=== PATIENT | male | born 1970 | race Caucasian/White ===

== ENCOUNTER → 2016-12-04 | Outpatient (CLI) | payer OTHER ==
[~2016-12-04] MED LIST: ACET-1311 PO; ALUM-30 PO; BENZ-89 PO; CEPH500C2 PO; LITH150C PO; LITH600C PO; METF500T PO; MOML PO; RSP1 PO; RSP3 PO
[2016-12-04 09:37] LABS: BASO % 0.5 %; BASO ABS # 0.05 K/uL (0-0.2); EOS % 3.6 %; HEMATOCRIT 38.3 % (42-52); IG% 0.3 %; LYMPH ABS # 2.13 K/uL (1.2-3.4); MEAN CELL VOLUME 65.5 fL (80-100); MEAN CORPUSCULAR HGB CONC 30.5 g/dl (32-36); MEAN PLATELET VOLUME 10.7 fL (7.4-10.4); MONO % 5.7 %; NEUT % 68.9 %; PLATELET COUNT 234 K/uL (130-400); RED BLOOD COUNT 5.85 M/uL (4.7-6.1); WHITE BLOOD COUNT 10.15 K/uL (4.8-10.8)
[2016-12-04 09:44] LABS: POTASSIUM 3.6 mmol/L (3.5-5.1)
[2016-12-04 09:52] LABS: LITHIUM 0.6 mMOL/L (0.6-1.2)
[2016-12-04 09:57] LABS: ANISOCYTOSIS PRESENT; COMPLETE YES; HYPERSEGMENTED POLYS 1+; HYPOCHROMIA PRESENT; MICROCYTOSIS PRESENT; TOXIC GRANULATION 1+; VACUOLIZATION 1+
== END | disposition home or self-care (01) ==
LOC: C.LAB 07:44
PROVIDERS: ATTEND Psychiatry & Neurology Psychiatry
DX: F25.9 Schizoaffective disorder, unspecified (principal)

== ENCOUNTER 2017-01-21 09:10 | Emergency (ER) | payer OTHER ==
[~2017-01-21] VITALS: Ht 195.6 cm; Wt 154.1 kg
[2017-01-21 09:10] VITALS: TEMP 36.8; Ht 195.6 cm; Wt 154.1 kg
[~2017-01-21 09:10] MED LIST changes: -CEPH500C2 PO
[2017-01-21] MEDS ORDERED: IBUPROFEN 600 MG TAB PO STA (09:51)
--- NOTE | 2017-01-21 09:52 | EMERGENCY ROOM VISIT NOTE ---
History Report prepared by Jarrod: Edgard Bro Under the Supervision of: Dr. Timmy Mayers M.D. 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 The patient notes that he has had back pain for two weeks and this morning he could not get out bed. He currently rates his pain a 5/10 in severity. He reports back pain in the past with similar symptoms. He notes that he had a pinched nerve in the past and he "fixed it by traction; I did it myself." He took 600mg Ibuprofen last night. He was recently hospitalized. He notes difficulty urinating, though this has been normal for him. He denies any fevers, chills, coughs, congestion, nausea, vomiting, or diarrhea. He notes blisters on his left foot. He has a history of neuropathy. He denies a history of diabetes. The patient has a history of bipolar disorder. 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 A total of ten systems were reviewed and were otherwise negative. Past Medical & Surgical Medical Problems: (1) Bipolar disorder (2) Depression (3) Diabetes mellitus (4) Feeling suicidal (5) Pinched nerve Family History Depression Social History Smoking Status: Never Smoker Alcohol Use: none Drug Use: none Marital Status: single, Housing Status: other (jail at [facility] [place]) Occupation Status: disabled Current/Historical Medications Scheduled Carbamazepine (Tegretol), 400 MG PO BID Hydrochlorothiazide (Hydrochlorothiazide), 12.5 MG PO DAILY [place] Carbonate Ext Rel (Lithobid Ext Rel), 300 MG PO DAILY@1600 [place] Carbonate Ext Rel (Lithobid Ext Rel), 450 MG PO BID Lorazepam (Ativan), 0.5 MG PO BID Prednisone (Prednisone), 3 TAB PO DAILY Risperidone (Risperdal), 3 MG PO BID Scheduled PRN Lidocaine (Lidoderm Patch 5%), 1 PATCH TD DAILY PRN for Pain Allergies Coded Allergies: No Known Allergies (Verified , `, 11/28/12) Physical Exam Vital Signs Date Time Temp Pulse Resp B/P (MAP) Pulse Ox O2 Delivery O2 Flow Rate FiO2 01/21/17 13:12 68 16 145/72 98 Room Air 01/21/17 11:13 72 16 171/90 98 Room Air 01/21/17 09:35 75 16 161/86 94 Room Air 01/21/17 09:10 36.8 75 16 161/86 94 Room Air Physical Exam GENERAL: Awake, alert, well-appearing, in no distress HENT: Normocephalic, atraumatic. Oropharynx show dry mucus membranes. EYES: Normal conjunctiva. Sclera non-icteric. NECK: Supple. No nuchal rigidity. FROM. No JVD. RESPIRATORY: Clear to auscultation. CARDIAC: Regular rate, normal rhythm. Extremities warm and well perfused. Pulses equal. ABDOMEN: Soft, non-distended. No tenderness to palpation. No rebound or guarding. No masses. RECTAL: Deferred. MUSCULOSKELETAL: Chest examination reveals no tenderness. The back is symmetrical on inspection without obvious abnormality. There is no CVA tenderness to palpation. No joint edema. LOWER EXTREMITIES: Calves are equal size bilaterally and non-tender. No edema. No discoloration. Positive straight leg raise on right and slightly on left. Mild tenderness in lower lumbar region extending distally in the sciatica distribution. 5/5 strength and SILT in bilateral LE. L5 intact. NEURO: Normal sensorium. No sensory or motor deficits noted. SKIN: No rash or jaundice noted. Medical Decision & Procedures Laboratory Results Test 01/21/17 10:24 [place] Level 0.6 mMOL/L (0.6-1.2) Laboratory results reviewed by me Medications Administered Medications (Trade) Dose Ordered Sig/Fabby Route Start Time Stop Time Status Last Admin Dose Admin Ibuprofen (Motrin Tab) 800 mg STK-MED ONCE .ROUTE 01/21/17 09:59 01/21/17 10:00 DC 01/21/17 10:05 800 MG Lorazepam (Ativan Tab) 0.5 mg NOW STAT SL 01/21/17 10:51 01/21/17 10:52 DC 01/21/17 11:12 0.5 MG Dexamethasone Sodium Phosphate (Dexamethasone Inj Pf) 10 mg NOW ONCE IM 01/21/17 12:00 01/21/17 12:01 DC 01/21/17 11:59 10 MG Risperidone (Risperdal Tab) 3 mg NOW ONCE PO 01/21/17 13:00 01/21/17 13:01 DC 01/21/17 13:06 3 MG [place] Carbonate (Eskalith Cr Tab) 450 mg NOW STAT PO 01/21/17 12:50 01/21/17 12:54 DC 01/21/17 13:06 450 MG Carbamazepine (Tegretol Tab) 400 mg NOW ONCE PO 01/21/17 13:00 01/21/17 13:01 DC 01/21/17 13:06 400 MG Hydrochlorothiazide (Hydrochlorothiazide Tab) 12.5 mg NOW STAT PO 01/21/17 12:50 01/21/17 12:54 DC 01/21/17 13:05 12.5 MG Lidocaine (Lidoderm Patch 5%) 1 patch NOW STAT TD 01/21/17 12:59 01/21/17 13:00 DC 01/21/17 13:05 1 PATCH ED Course 0936: The patient was evaluated in room B7. A complete history and physical exam was performed. 1238: I reassessed the patient at this time. He is feeling better and resting comfortably. I discussed the results and treatment plan with the patient. I answered all pertaining questions that he had. He expressed understanding and verbalized agreement. The patient will be discharged home. Medical Decision I reviewed the patient's past medical history, medications, and the nursing notes as described above. The patient's presentation and history were concerning for sciatica, musculoskeletal strain, disk bulge and disk herniation The patient is a 46-year-old gentleman with a PMHX of BPD on [place], prior episodes of sciatica who presents to the emergency department with right lumbar pain with radiation to his right posterior leg for the past 2 weeks that was worse today unable to ambulate secondary to pain per hpi. On arrival the patient is uncomfortable but in no acute distress, afebrile stable vital signs. He has mild right lumbar tenderness to palpation with extension distally in the sciatic distribution. Otherwise he is neurologically intact with 5 out of 5 strength and SILT in BLE. L5 intact bilaterally. Denies any new urinary retention from his baseline. Denies bowel incontinence. No indication for emergent imaging at this time. Of note in the setting of the patient's bipolar disorder the patient on his own called Dr. Weathers's office and left voice message. I then d/w Dr. Weathers that this was done by the patient alone, and that we did not intent to consult given his benign presentation. However, if patient would be admitted he would be available for consultation. Subsequently, patient felt improved after ibuprofen, ativan, IM dexamethasone and was able to ambulate with mild discomfort. Findings and plan for follow-up reviewed with patient. Patient agreeable and d/c'd per discharge instructions. Medication Reconcilliation Current Medication List: was personally reviewed by me Blood Pressure Screening Patient's blood pressure: Elevated blood pressure Blood pressure disposition: Elevated BP felt to be situational Impression Primary Impression: Lumbosacral radiculopathy Scribe Attestation The scribe's documentation has been prepared under my direction and personally reviewed by me in its entirety. I confirm that the note above accurately reflects all work, treatment, procedures, and medical decision making performed by me. Departure Information Dispostion Home / Self-Care Prescriptions Lidocaine (Lidoderm Patch 5%) 1 Ea Tdsy 1 PATCH TD DAILY Y for Pain, #7 PATCH 12 hours on and 12 hours off. Prov: Timmy Mayers M.D. 01/21/17 Prednisone (Prednisone) 20 Mg Tab 3 TAB PO DAILY for 4 Days, #12 TAB FOR 4 DAYS Prov: Timmy Mayers M.D. 01/21/17 Referrals Johnnie Mckeon D.O. (PCP) Forms HOME CARE DOCUMENTATION FORM, IMPORTANT VISIT INFORMATION Patient Instructions Lumbar Radiculopathy, My [facility] Additional Instructions Please follow up with your primary care physician in the next 1-3 days for re- evaluation. You likely have sciatica. Otherwise, your exam did not show signs of an emergent condition at this time. Prednisone for anti-inflammation and pain as prescribed. Acetaminophen and Ibuprofen for pain as needed. Lidoderm patch for additional pain relief as prescribed. Heating pad at 20 minute intervals for additional pain relief. Return to the emergency department for worsening symptoms as described in the accompanying instructions.
[2017-01-21] MEDS ORDERED: IBUPROFEN 800 MG TAB ONE (09:59)
[2017-01-21] MEDS ORDERED: LITH1TAB PO (10:08)
[2017-01-21] MEDS ORDERED: CARB200T PO (10:08)
[2017-01-21] MEDS ORDERED: HYDR12.55 PO (10:08)
[2017-01-21] MEDS ORDERED: RISP3TAB12 PO (10:08)
[2017-01-21] MEDS ORDERED: LITH1TAB10 PO (10:08)
[2017-01-21] MEDS ORDERED: LORA-741 PO (10:08)
[2017-01-21] MEDS ORDERED: LORAZEPAM 0.5 MG TAB SL STA (10:51)
[2017-01-21] MEDS ORDERED: DEXAMETHASONE **PF** INJ 10 MG/ML VIAL IM ONE (12:00)
[2017-01-21] MEDS ORDERED: LITHIUM CARBONATE 450 MG TABCR PO STA (12:50)
[2017-01-21] MEDS ORDERED: HYDROCHLOROTHIAZIDE 25 MG TAB PO STA (12:50)
[2017-01-21] MEDS ORDERED: NF656 TD (12:57)
[2017-01-21] MEDS ORDERED: PRED20TA PO (12:57)
[2017-01-21] MEDS ORDERED: LIDODERM (LIDOCAINE) PATCH 5% TD STA (12:59)
[2017-01-21] MEDS ORDERED: CARBAMAZEPINE 200 MG TAB PO ONE (13:00)
[2017-01-21] MEDS ORDERED: RISPERIDONE 1 MG TAB PO ONE (13:00)
[2017-01-21 13:12] VITALS: BP 145/72; PULSE 68; O2SAT 98
== END 2017-01-21 13:50 | disposition home or self-care (01) ==
LOC: EDBD 09:10 → C.EDB 09:11
DX: M54.17 Radiculopathy, lumbosacral region (principal); F31.9 Bipolar disorder, unspecified; E11.9 Type 2 diabetes mellitus without complications; Z79.899 Other long term (current) drug therapy; F32.9 Major depressive disorder, single episode, unspecified

== ENCOUNTER → 2017-02-09 | Outpatient (CLI) | payer OTHER ==
[~2017-02-09] MED LIST changes: -ACET-1311 PO; -ALUM-30 PO; -BENZ-89 PO; +CARB200T PO; +HYDR12.55 PO; -LITH150C PO; +LITH1TAB PO; +LITH1TAB10 PO; -LITH600C PO; +LORA-741 PO; +LTHSR/300 PO; -METF500T PO; -MOML PO; +NAPR-22 PO; +NF656 TD; +PRED20TA2 PO; +RISP3TAB12 PO; -RSP1 PO; -RSP3 PO
--- NOTE | 2017-02-09 15:55 | DIAGNOSTIC IMAGING REPORT ---
PELVIS 1 OR 2 VIEWS CLINICAL HISTORY: 46 years-old Male presenting with RIGHT SIDED LOWER BACK PAIN. TECHNIQUE: Single frontal view of the pelvis was obtained. COMPARISON: CT of the abdomen and pelvis from 2013. FINDINGS: Bony pelvis intact. Pubic symphysis and sacroiliac joints intact. Hip joints congruent. No femoral neck fracture. Arcuate lines grossly intact. Mild degenerative change at L5-S1 suggested. Mild stool burden in the rectum. IMPRESSION: 1. No acute osseous injury of the pelvis. 2. Degenerative changes at L5-S1. Electronically signed by: Brad Elliott M.D. 02/09/2017 3:54 PM Dictated Date/Time: 02/09/2017 3:53 PM
--- NOTE | 2017-02-09 15:59 | DIAGNOSTIC IMAGING REPORT ---
LUMBAR SPINE MIN 4 VIEWS CLINICAL HISTORY: 46 years-old Male presenting with RIGHT SIDED LOWER BACK PAIN. TECHNIQUE: Frontal, bilateral oblique, lateral, and coned in lateral views of the lumbar spine were obtained. COMPARISON: 05/27/2009. FINDINGS: No scoliosis. 8 mm of grade 1 anterolisthesis of L4 on L5, new from prior. No radiographic evidence of a pars defect. 6 mm of grade 1 retrolisthesis of L5 on S1, unchanged. Vertebral bodies maintain normal height. Intervertebral disc height loss at L5-S1. Anterior osteophytosis noted at L5-S1 and to a lesser degrees at several additional levels. Osseous neural foraminal narrowing may be present at L5-S1. No compression deformity or evidence of subluxation. IMPRESSION: 1. No radiographic evidence of acute osseous injury of the lumbar spine. 2. Focal degenerative changes at L5-S1 with possible osseous neural foraminal narrowing. The appearance has minimally progressed from the prior exam. 3. Interval development of grade 1 anterolisthesis of L4 on L5, which is likely degenerative in etiology. Electronically signed by: Brad Elliott M.D. 02/09/2017 3:57 PM Dictated Date/Time: 02/09/2017 3:54 PM
== END | disposition home or self-care (01) ==
LOC: C.RDSM 15:25
PROVIDERS: ATTEND Family Medicine
DX: M54.5 Low back pain (principal); M53.86 Other specified dorsopathies, lumbar region

== ENCOUNTER 2017-02-10 10:06 | Emergency (ER) | payer OTHER ==
[~2017-02-10] VITALS: Ht 195.6 cm; Wt 160.0 kg
[~2017-02-10 10:06] MED LIST changes: -LTHSR/300 PO; -NAPR-22 PO; -PRED20TA2 PO
[2017-02-10 10:13] VITALS: TEMP 37; Ht 195.6 cm; Wt 160.0 kg
[2017-02-10] MEDS ORDERED: ONDANSETRON INJ 2 MG/ML 2 ML VIAL IV STA (10:19)
[2017-02-10] MEDS ORDERED: KETOROLAC TROMETHAMINE 30 MG/ML VIAL IV STA (10:19)
[2017-02-10] MEDS ORDERED: DEXAMETHASONE **PF** INJ 10 MG/ML VIAL PO ONE (10:30)
[2017-02-10 10:45] LABS: BASO % 0.5 %; BASO ABS # 0.04 K/uL (0-0.2); EOS % 3.7 %; EOS ABS # 0.31 K/uL (0-0.5); HEMATOCRIT 35.9 % (42-52); HEMOGLOBIN 11.1 g/dL (14.0-18.0); IG# 0.01 K/uL (0.00-0.02); LYMPH ABS # 1.58 K/uL (1.2-3.4); MEAN CELL VOLUME 65.3 fL (80-100); MEAN CORPUSCULAR HEMOGLOBIN 20.2 pg (25-34); MEAN CORPUSCULAR HGB CONC 30.9 g/dl (32-36); MONO % 5.5 %; MONO ABS # 0.46 K/uL (0.11-0.59); NEUT % 71.2 %; NEUT ABS # 5.91 K/uL (1.4-6.5); PLATELET COUNT 268 K/uL (130-400); RED CELL DISTRIBUTION WIDTH CV 16.9 % (11.5-14.5); RED CELL DISTRIBUTION WIDTH SD 39.9 fL (36.4-46.3); WHITE BLOOD COUNT 8.31 K/uL (4.8-10.8)
--- NOTE | 2017-02-10 10:54 | EMERGENCY ROOM VISIT NOTE ---
History Report prepared by Jarrod: Edgard Bro Under the Supervision of: Dr. Eulalio Latham D.O. First contact with patient: 10:10 Stated Complaint: BACK/LEG PAIN History of Present Illness The patient is a 46 year old male who presents to the Emergency Room with complaints of persistent low back pain for three months [employer]. He notes the pain is radiating to his right leg. He notes that he slept in a chair last night and when he woke up he couldn't walk. He notes he could stand for a brief period of time, though it was painful. He currently rates his pain a 5/10 in severity. He states that he has been taking Ibuprofen, though it is not providing relief. He reports that sitting down worsens the pain. He was recently seen by his orthopedic doctor. He notes that he has trouble going to the bathroom, because he cannot sit without pain.The patient resides in a halfway. He has a history of sciatica. He denies any falls, leg swelling or leg redness. Source of History: patient Onset: three months [employer]IST[employer] SU[employer] Position: back Symptom Intensity: 5/10 Quality: other (radiating to right leg) Timing: other (persistent) Note: He notes the low back pain is radiating to right leg. He denies any falls, leg swelling or leg redness. Review of Systems See HPI for pertinent positives & negatives. A total of 10 systems reviewed and were otherwise negative. Past Medical & Surgical Medical Problems: (1) Bipolar disorder (2) Depression (3) Diabetes mellitus (4) Feeling suicidal (5) Pinched nerve Family History Depression Social History Smoking Status: Never Smoker Alcohol Use: none Drug Use: none Marital Status: single, Housing Status: other Occupation Status: disabled Current/Historical Medications Scheduled Carbamazepine (Tegretol), 400 MG PO BID Hydrochlorothiazide (Hydrochlorothiazide), 12.5 MG PO DAILY [place] Carbonate Ext Rel (Lithobid Ext Rel), 300 MG PO DAILY@1600 [place] Carbonate Ext Rel (Lithobid Ext Rel), 450 MG PO BID Lorazepam (Ativan), 0.5 MG PO BID Prednisone (Prednisone Tab), 40 MG PO DAILYBB Risperidone (Risperdal), 3 MG PO BID Allergies Coded Allergies: No Known Allergies (Verified , `, 02/10/17) Physical Exam Vital Signs Date Time Temp Pulse Resp B/P (MAP) Pulse Ox O2 Delivery O2 Flow Rate FiO2 02/10/17 12:03 66 145/80 96 Room Air 02/10/17 10:13 37.0 67 18 173/98 94 Room Air Physical Exam GENERAL: Patient is awake, alert, and in no acute distress. Patient is resting comfortably and showing no signs of anxiety EYES: The conjunctivae are clear. The pupils are round and reactive. EARS, NOSE, MOUTH AND THROAT: The nose is without any evidence of any deformity. Mucous membranes are moist tongue is midline NECK: The neck is nontender and supple. RESPIRATORY: Normal respiratory effort is noted there is no evidence of wheezing rhonchi or rales CARDIOVASCULAR: Regular rate and rhythm to auscultation. Systolic murmur noted to auscultation. GASTROINTESTINAL: The abdomen is soft. Bowel sounds are present in all quadrants. Abdomen is nontender BACK: Low midline lumbar spine tender to palpation. ROM appeared limited secondary to pain. MUSCULOSKELETAL/EXTREMITIES: There is no evidence of gross deformity full range of motion is noted in the hips and shoulders SKIN: There is no obvious evidence of any rash. There are no petechiae, pallor or cyanosis noted. Pedal edema bilaterally. NEUROLOGIC: Patient is awake alert and oriented x3 strength is symmetric patellar reflexes are 1+ bilaterally. Achilles tendon reflexes are 2+ bilaterally. Great toe raises are symmetric. Pain with right straight leg raising. Medical Decision & Procedures ER Provider Diagnostic Interpretation: Radiology results as stated below per my review and radiologist interpretation: LUMBAR SPINE WITHOUT CLINICAL HISTORY: 46 years-old Male presenting with LBP to the right leg. TECHNIQUE: Multidetector CT of the lumbar spine was performed without the use of intravenous contrast. IV contrast: None. A dose lowering technique was used consistent with the principles of ALARA (as low as reasonably achievable). COMPARISON: Plain radiographs from the previous day and MR from 2006. CT DOSE (mGy.cm): The estimated cumulative dose is 2228.30 mGy.cm. FINDINGS: Quality Control Associate topogram: Unremarkable. Normal lumbar lordosis with the exception of trace retrolisthesis of L5 on S1. The previously suggested anterolisthesis of L4 on L5 was projectional and is not truly present. Vertebral bodies maintain normal height. Intervertebral disc height loss at L5-S1. Remainder of the disc heights preserved. No acute fracture or subluxation. Degenerative changes further detailed below: L1-2: No significant spinal canal or neural foraminal narrowing. L2-3: Minimal disc bulge. No significant spinal canal or neural foraminal narrowing. L3-4: Mild disc bulge results in mild bilateral neural foraminal narrowing. No significant spinal canal narrowing. L4-5: Mild disc bulge in combination with facet arthropathy and ligamentum flavum thickening results in circumferential effacement of the thecal sac and mild bilateral neural foraminal narrowing. L5-S1: Disc bulge and mild facet arthropathy result in moderate bilateral neural foraminal narrowing. Paraspinal soft tissues within normal limits with the exception of atherosclerosis. Nonspecific subcutaneous edema in the lumbar region. IMPRESSION: 1. No acute osseous injury of the lumbar spine. 2. Multilevel degenerative changes most significant in the lower lumbar spine. Spinal canal stenosis and facet arthropathy worst at L4-5. Electronically signed by: Brad Elliott M.D. 02/10/2017 11:22 AM Dictated Date/Time: 02/10/2017 11:18 AM Laboratory Results 02/10/17 10:30 Red Blood Count 5.50, Mean Corpuscular Volume 65.3, Mean Corpuscular Hemoglobin 20.2, Mean Corpuscular Hemoglobin Concent 30.9, Mean Platelet Volume 10.0, Neutrophils (%) (Auto) 71.2, Lymphocytes (%) (Auto) 19.0, Monocytes (%) (Auto) 5.5, Eosinophils (%) (Auto) 3.7, Basophils (%) (Auto) 0.5, Neutrophils # (Auto) 5.91, Lymphocytes # (Auto) 1.58, Monocytes # (Auto) 0.46, Eosinophils # (Auto) 0.31, Basophils # (Auto) 0.04 02/10/17 10:30 Test 02/10/17 10:30 02/10/17 11:50 White Blood Count 8.31 K/uL (4.8-10.8) Red Blood Count 5.50 M/uL (4.7-6.1) Hemoglobin 11.1 g/dL (14.0-18.0) Hematocrit 35.9 % (42-52) Mean Corpuscular Volume 65.3 fL (80-100) Mean Corpuscular Hemoglobin 20.2 pg (25-34) Mean Corpuscular Hemoglobin Concent 30.9 g/dl (32-36) Platelet Count 268 K/uL (130-400) Mean Platelet Volume 10.0 fL (7.4-10.4) Neutrophils (%) (Auto) 71.2 % Lymphocytes (%) (Auto) 19.0 % Monocytes (%) (Auto) 5.5 % Eosinophils (%) (Auto) 3.7 % Basophils (%) (Auto) 0.5 % Neutrophils # (Auto) 5.91 K/uL (1.4-6.5) Lymphocytes # (Auto) 1.58 K/uL (1.2-3.4) Monocytes # (Auto) 0.46 K/uL (0.11-0.59) Eosinophils # (Auto) 0.31 K/uL (0-0.5) Basophils # (Auto) 0.04 K/uL (0-0.2) RDW Standard Deviation 39.9 fL (36.4-46.3) RDW Coefficient of Variation 16.9 % (11.5-14.5) Immature Granulocyte % (Auto) 0.1 % Immature Granulocyte # (Auto) 0.01 K/uL (0.00-0.02) Microcytosis PRESENT Tear Drop Cells 1+ Ovalocytes 1+ Anion Gap 4.0 mmol/L (3-11) Est Creatinine Clear Calc Drug Dose 163.2 ml/min Estimated GFR () 112.9 Estimated GFR (Non- 97.4 BUN/Creatinine Ratio 14.2 (10-20) Calcium Level 9.2 mg/dl (8.5-10.1) Total Bilirubin 0.2 mg/dl (0.2-1) Direct Bilirubin < 0.1 mg/dl (0-0.2) Aspartate Amino Transf (AST/SGOT) 13 U/L (15-37) Alanine Aminotransferase (ALT/SGPT) 32 U/L (12-78) Alkaline Phosphatase 78 U/L (45-117) Total Protein 7.0 gm/dl (6.4-8.2) Albumin 3.5 gm/dl (3.4-5.0) Lipase 147 U/L (73-393) Carbamazepine (Tegretol) Level 9.8 mcg/ml (4-12) [place] Level 0.8 mMOL/L (0.6-1.2) Urine Color YELLOW Urine Appearance CLEAR (CLEAR) Urine pH 7.0 (4.5-7.5) Urine Specific [place] 1.013 (1.000-1.030) Urine Protein NEG (NEG) Urine Glucose (UA) NEG (NEG) Urine Ketones NEG (NEG) Urine Occult Blood NEG (NEG) Urine Nitrite NEG (NEG) Urine Bilirubin NEG (NEG) Urine Urobilinogen NEG (NEG) Urine Leukocyte Esterase NEG (NEG) Laboratory results per my review. Medications Administered Medications (Trade) Dose Ordered Sig/Fabby Route Start Time Stop Time Status Last Admin Dose Admin Ondansetron HCl (Zofran Inj) 4 mg NOW STAT IV 02/10/17 10:19 02/10/17 10:21 DC 02/10/17 10:32 4 MG Ketorolac Tromethamine (Toradol Inj) 30 mg NOW STAT IV 02/10/17 10:19 02/10/17 10:21 DC 02/10/17 10:33 30 MG Dexamethasone Sodium Phosphate (Dexamethasone Inj Pf) 10 mg NOW ONCE PO 02/10/17 10:30 02/10/17 10:31 DC 02/10/17 10:32 10 MG Lorazepam (Ativan Tab) 0.5 mg NOW STAT SL 02/10/17 14:40 02/10/17 14:41 DC 02/10/17 14:51 0.5 MG ED Course 1013: The patient was evaluated in room B8. A complete history and physical examination were performed. 1019: Ordered Toradol 30 mg IV and Zofran 4 mg IV 1030: Ordered Dexamethasone Sodium Phosphate 10 mg PO 1348: I reassessed the patient at this time. He is resting comfortably. 1358: I spoke with Leah Gottlieb, case management. I put in a request for a PT evaluation. 1440: Ordered Lorazepam 0.5 mg SL 1450: I reassessed the patient at this time. He is feeling better and resting comfortably. I discussed the results and treatment plan with the patient. I answered all pertaining questions that he had. He expressed understanding and verbalized agreement. The patient will be discharged home. Medical Decision Prior records/ancillary studies reviewed. Triage Nursing notes reviewed. The patient's history was concerning for back pain. Differential diagnosis: Etiologies such as musculoskeletal, disc herniation, fracture, aortic disease, metastatic disease, cord compression, discitis, infection, renal colic, gastrointestinal, acute exacerbation of chronic back pain, sciatica, cauda equina, as well as others were entertained. The patient is a 46-year-old male who has a history of sciatica who presented to the emergency department with back pain. He was treated with steroids and pain medication in the emergency department. He was reevaluated multiple times. The patient was able to ambulate with some difficulty. He was encouraged to rest and avoid any strenuous activity. I discussed the patient's laboratory and radiographic studies with him. He was also encouraged to follow-up with his primary back specialist for further evaluation. He was also encouraged to return to the emergency department immediately if symptoms change worsen or the need arises. Medication Reconcilliation Current Medication List: was personally reviewed by me Blood Pressure Screening Patient's blood pressure: Elevated blood pressure Blood pressure disposition: Elevated BP felt to be situational Impression Primary Impression: Right-sided low back pain with sciatica Scribe Attestation The scribe's documentation has been prepared under my direction and personally reviewed by me in its entirety. I confirm that the note above accurately reflects all work, treatment, procedures, and medical decision making performed by me. Departure Information Dispostion Home / Self-Care Prescriptions Prednisone (Prednisone Tab) 20 Mg Tab 40 MG PO DAILYBB, #10 TAB Start on 02/11 Prov: Eulalio Latham, DO 02/10/17 Referrals Johnnie Mckeon D.OElsie (PCP) Forms HOME CARE DOCUMENTATION FORM, IMPORTANT VISIT INFORMATION, WORK / SCHOOL INSTRUCTIONS Patient Instructions Lumbar Radiculopathy, My [facility] Additional Instructions Continue all medications as prescribed. Continue using Motrin and Tylenol for pain. Follow-up with your back specialist for further evaluation. Start taking the steroids tomorrow but citrus picker the prescription today. Problem Qualifiers Primary Impression: Right-sided low back pain with sciatica Chronicity: chronic Sciatica laterality: sciatica of right side Qualified Codes: M54.41 - Lumbago with sciatica, right side; G89.29 - Other chronic pain
[2017-02-10 11:05] LABS: ALBUMIN 3.5 gm/dl (3.4-5.0); ALT/SGPT 32 U/L (12-78); AST/SGOT 13 U/L (15-37); BLOOD UREA NITROGEN 13 mg/dl (7-18); CALCIUM 9.2 mg/dl (8.5-10.1); CARBON DIOXIDE 28 mmol/L (21-32); CREATININE 0.93 mg/dl (0.60-1.40); GLUCOSE 97 mg/dl (70-99); LIPASE 147 U/L (73-393); POTASSIUM 4.3 mmol/L (3.5-5.1); SODIUM 139 mmol/L (136-145)
[2017-02-10 11:08] LABS: ALKALINE PHOSPHATASE 78 U/L (45-117)
--- NOTE | 2017-02-10 11:24 | DIAGNOSTIC IMAGING REPORT ---
LUMBAR SPINE WITHOUT CLINICAL HISTORY: 46 years-old Male presenting with LBP to the right leg. TECHNIQUE: Multidetector CT of the lumbar spine was performed without the use of intravenous contrast. IV contrast: None. A dose lowering technique was used consistent with the principles of ALARA (as low as reasonably achievable). COMPARISON: Plain radiographs from the previous day and MR from 2006. CT DOSE (mGy.cm): The estimated cumulative dose is 2228.30 mGy.cm. FINDINGS: Realty Loan Specialist topogram: Unremarkable. Normal lumbar lordosis with the exception of trace retrolisthesis of L5 on S1. The previously suggested anterolisthesis of L4 on L5 was projectional and is not truly present. Vertebral bodies maintain normal height. Intervertebral disc height loss at L5-S1. Remainder of the disc heights preserved. No acute fracture or subluxation. Degenerative changes further detailed below: L1-2: No significant spinal canal or neural foraminal narrowing. L2-3: Minimal disc bulge. No significant spinal canal or neural foraminal narrowing. L3-4: Mild disc bulge results in mild bilateral neural foraminal narrowing. No significant spinal canal narrowing. L4-5: Mild disc bulge in combination with facet arthropathy and ligamentum flavum thickening results in circumferential effacement of the thecal sac and mild bilateral neural foraminal narrowing. L5-S1: Disc bulge and mild facet arthropathy result in moderate bilateral neural foraminal narrowing. Paraspinal soft tissues within normal limits with the exception of atherosclerosis. Nonspecific subcutaneous edema in the lumbar region. IMPRESSION: 1. No acute osseous injury of the lumbar spine. 2. Multilevel degenerative changes most significant in the lower lumbar spine. Spinal canal stenosis and facet arthropathy worst at L4-5. Electronically signed by: Brad Elliott M.D. 02/10/2017 11:22 AM Dictated Date/Time: 02/10/2017 11:18 AM
[2017-02-10 12:03] VITALS: BP 145/80; PULSE 66; O2SAT 96
[2017-02-10] MEDS ORDERED: LORAZEPAM 0.5 MG TAB SL STA (14:40)
[2017-02-10] MEDS ORDERED: PRED20TA2 PO (14:59)
[2017-03-03] MEDS ORDERED: NAPR-22 PO (13:16)
== END 2017-02-10 15:02 | disposition home or self-care (01) ==
LOC: EDBD 10:06 → C.EDB 10:07
DX: M54.41 Lumbago with sciatica, right side (principal); G89.29 Other chronic pain; E11.9 Type 2 diabetes mellitus without complications; R03.0 Elevated blood-pressure reading, without diagnosis of hypertension; Z81.8 Family history of other mental and behavioral disorders

== ENCOUNTER 2017-02-15 19:03 | Emergency (ER) | payer OTHER ==
[~2017-02-15] VITALS: Ht 195.6 cm; Wt 155.0 kg
[~2017-02-15 19:03] MED LIST changes: -NF656 TD; +PRED20TA2 PO
[2017-02-15] MEDS ORDERED: LTHSR/300 PO (19:17)
[2017-02-15 19:20] VITALS: TEMP 36.8; Ht 195.6 cm; Wt 155.0 kg
[2017-02-15] MEDS ORDERED: DEXAMETHASONE SOD INJ 4 MG/ML 5 ML VIAL IM STA (19:35)
[2017-02-15] MEDS ORDERED: OXYCODONE HCL IR 5 MG TAB (IMMEDIATE RELEASE) PO STA (19:35)
[2017-02-15] MEDS ORDERED: DEXAMETHASONE **PF** INJ 10 MG/ML VIAL ONE (19:51)
[2017-02-15] MEDS ORDERED: LITHIUM CARBONATE 300 MG TAB PO STA (20:15)
[2017-02-15] MEDS ORDERED: RISPERIDONE 3 MG TAB PO STA (20:16)
[2017-02-15] MEDS ORDERED: CARBAMAZEPINE 200 MG TAB PO STA (20:17)
[2017-02-15] MEDS ORDERED: LITHIUM CARBONATE 450 MG TABCR PO STA (20:18)
[2017-02-15] MEDS ORDERED: LORAZEPAM 0.5 MG TAB SL STA (20:18)
--- NOTE | 2017-02-15 20:22 | EMERGENCY ROOM VISIT NOTE ---
ED Visit Note First contact with patient: 19:20 I have seen and examined this patient with Marlin Carpio and generally agree with the treatment plan as discussed. This is a 46-year-old male who is demanding to see a physician upon arrival to the emergency department. This occurred during a period of high volume and high acuity. He is demanding an x-ray. I talked to the patient at length about this as he just had a CAT scan of the pelvis which is a far better image than an x-ray. I will note that EMS noted that the patient walked to his T a fine. I will also note that the patient has had multiple workups in the emergency department this week. In addition the patient did not fill any of his prescribed medications. The patient is insisting he cannot walk however walk just fine when he was discharged the other day and walked finding for EMS. The patient has not been taking his home medications and these were ordered for him here in the emergency department. I discussed this case with case management who agreed to see the patient in the hopes of getting him into a rehabilitation facility. While this was ongoing, the Patient Called [place] [id number] and worries that he was going to be discharged from the emergency department. At this point I told the patient that this was inappropriate and he was now malingering in the emergency department. He was given the option of either for filling his medications that he was prescribed at home or having a mental health evaluation or being turned over to the police for malingering. I will note that the patient was able to ambulate with the help of a walker. I will also note that the patient was uncooperative with case management and trying to assist them and getting him placed in a rehabilitation facility. He is also refusing a mental health evaluation. Problem List Medical Problems: (1) Bipolar disorder Status: Chronic (2) Depression Status: Chronic (3) Diabetes mellitus Status: Chronic (4) Feeling suicidal Status: Chronic (5) Pinched nerve Status: Resolved Current/Historical Medications Scheduled Carbamazepine (Tegretol), 400 MG PO BID Hydrochlorothiazide (Hydrochlorothiazide), 12.5 MG PO DAILY [place] Carbonate ([place] Carbonate), 300 MG PO QPM [place] Carbonate Ext Rel (Lithobid Ext Rel), 450 MG PO BID Lorazepam (Ativan), 0.5 MG PO BID Risperidone (Risperdal), 3 MG PO BID Allergies Coded Allergies: No Known Allergies (Verified , `, 02/15/17) Vital Signs Date Time Temp Pulse Resp B/P (MAP) Pulse Ox O2 Delivery O2 Flow Rate FiO2 02/15/17 22:01 70 16 169/99 96 02/15/17 19:20 36.8 67 16 189/103 95 Room Air Medications Administered Medications (Trade) Dose Ordered Sig/Fabby Route Start Time Stop Time Status Last Admin Dose Admin Oxycodone HCl (Roxicodone Immediate Rel Tab) 10 mg NOW STAT PO 02/15/17 19:35 02/15/17 19:37 DC 02/15/17 19:54 10 MG Dexamethasone Sodium Phosphate (Dexamethasone Inj Pf) 10 mg STK-MED ONCE .ROUTE 02/15/17 19:51 02/15/17 19:52 DC 02/15/17 19:54 10 MG [place] Carbonate ([place] Carbonate Tab) 300 mg NOW STAT PO 02/15/17 20:15 02/15/17 20:17 DC 02/15/17 20:50 300 MG Risperidone (Risperdal Tab) 3 mg NOW STAT PO 02/15/17 20:16 02/15/17 20:18 DC 02/15/17 20:49 3 MG Carbamazepine (Tegretol Tab) 400 mg NOW STAT PO 02/15/17 20:17 02/15/17 20:18 DC 02/15/17 20:49 400 MG [place] Carbonate (Eskalith Cr Tab) 450 mg NOW STAT PO 02/15/17 20:18 02/15/17 20:20 DC 02/15/17 20:50 450 MG Lorazepam (Ativan Tab) 0.5 mg NOW STAT SL 02/15/17 20:18 02/15/17 20:20 DC 02/15/17 20:49 0.5 MG Departure Information Impression Primary Impression: Malingering Referrals No Doctor, Assigned (PCP) Patient Instructions [facility]
--- NOTE | 2017-02-15 21:50 | EMERGENCY ROOM VISIT NOTE ---
History First contact with patient: 19:20 Chief Complaint: BACK PAIN Stated Complaint: BACK PAIN History of Present Illness The patient is a 46 year old male who presents to the Emergency Room via BLS from a alf with complaints of low back pain with pain radiating into his right hip and leg. The patient was seen here on 2 occasions for the same reason. He was seen here on February 09 and on February 10. The patient states that he was given a prescription for medications but he had no way to get the prescriptions filled. The patient states that it is difficult for him to stand at times due to the pain. He states that is why he called the ambulance today. The patient has seen his physician for the symptoms. He was told that he should see a oncology account specialist but his family doctor has not made that appointment as of today. The patient is here due to the continued pain in the lower back and radiating into his right hip. Review of Systems 10 system review was performed and was negative unless stated otherwise history of present illness. Past Medical/Surgical History Medical Problems: (1) Bipolar disorder (2) Depression (3) Diabetes mellitus (4) Feeling suicidal (5) Pinched nerve Family History Depression Social History Smoking Status: Unknown if Ever Smoked Alcohol Use: none Drug Use: none Marital Status: single, Housing Status: other Occupation Status: disabled Current/Historical Medications Scheduled Carbamazepine (Tegretol), 400 MG PO BID Hydrochlorothiazide (Hydrochlorothiazide), 12.5 MG PO DAILY [place] Carbonate (Isola Carbonate), 300 MG PO QPM [place] Carbonate Ext Rel (Lithobid Ext Rel), 450 MG PO BID Lorazepam (Ativan), 0.5 MG PO BID Risperidone (Risperdal), 3 MG PO BID Physical Exam Vital Signs Date Time Temp Pulse Resp B/P (MAP) Pulse Ox O2 Delivery O2 Flow Rate FiO2 02/15/17 19:20 36.8 67 16 189/103 95 Room Air Physical Exam PHYSICAL EXAM: Vital Signs normal: Reviewed Nurse's notes and agree. GEN.: 46- year-old white male appears in no acute distress. MENTAL STATUS: Alert and oriented 3. He is not very cooperative. LUMBAR SPINE: No gross bony abnormality noted. Patient is nontender to palpation over the spinous processes. He is tender to palpation over the right paravertebral region, left side nontender. Patient would not allow me to assess range of motion.. Muscle strength is 5 out of 5 bilateral lower extremities and symmetrical. Neuro: Negative straight leg raise bilaterally. RIGHT HIP: All no gross bony deformity noted. The patient is nontender to palpation over the greater trochanter. Limited range of motion secondary to pain. Medical Decision & Procedures Medications Administered Medications (Trade) Dose Ordered Sig/Fabby Route Start Time Stop Time Status Last Admin Dose Admin Oxycodone HCl (Roxicodone Immediate Rel Tab) 10 mg NOW STAT PO 02/15/17 19:35 02/15/17 19:37 DC 02/15/17 19:54 10 MG Dexamethasone Sodium Phosphate (Dexamethasone Inj Pf) 10 mg STK-MED ONCE .ROUTE 02/15/17 19:51 02/15/17 19:52 DC 02/15/17 19:54 10 MG Isola Carbonate (Isola Carbonate Tab) 300 mg NOW STAT PO 02/15/17 20:15 02/15/17 20:17 DC 02/15/17 20:50 300 MG Risperidone (Risperdal Tab) 3 mg NOW STAT PO 02/15/17 20:16 02/15/17 20:18 DC 02/15/17 20:49 3 MG Carbamazepine (Tegretol Tab) 400 mg NOW STAT PO 02/15/17 20:17 02/15/17 20:18 DC 02/15/17 20:49 400 MG Isola Carbonate (Eskalith Cr Tab) 450 mg NOW STAT PO 02/15/17 20:18 02/15/17 20:20 DC 02/15/17 20:50 450 MG Lorazepam (Ativan Tab) 0.5 mg NOW STAT SL 02/15/17 20:18 02/15/17 20:20 DC 02/15/17 20:49 0.5 MG ED Course The patient was evaluated. The patient's EMR medication list were reviewed. The patient had a CT of his lumbar spine performed on February 10 which revealed mild multilevel degenerative disc disease. 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 The patient was placed on 40 mg of prednisone daily for 5 days but obviously he did not take the medication since he did not get the prescription filled. The patient states that there is no one at the alf to get his prescription filled for him. I spoke with case management and they states that normally there is someone to get medications for the residents of the group own. They state that there have been similar problems with this patient in the past. The patient also requested to talk with a clinical social work aide. When I ask him why he stated "it was not a my business". I gave this information to the casey saw operator. Please see their note. The patient was given Decadron 10 mg IM and OxyIR 10 mg by mouth for pain. The patient then requested to be seen by a physician. Dr. Haley independently evaluated the patient. The patient told him he did not have any of his other meds today either. Therefore his daily meds were ordered and given to the patient. The patient was now very cooperative his entire stay. He called 911 and told them that we were "kicking him out of the ER." I discussed with the patient that there was no reason for him to stay. He was refusing to get up and ambulate. We got him a walker and the charge nurse as well as the nurse. The patient was able to walk with a walker. The patient was discharged home in stable condition. Medical Decision Differential diagnosis include sciatica, spinal stenosis, lumbar radiculopathy. Since the patient was not taking his prednisone as prescribed I informed the patient that this is why his symptoms are not getting any better. The patient did not have a good understanding of what I was telling him. [place] Drug Monitoring Program Search Results: patient reviewed within database Medication Reconcilliation Current Medication List: was personally reviewed by me Blood Pressure Screening Patient's blood pressure: Elevated blood pressure Blood pressure disposition: Elevated BP felt to be situational Impression Primary Impression: Low back pain with right-sided sciatica Departure Information Dispostion Home / Self-Care Condition GOOD Referrals No Doctor, Assigned (PCP) Forms HOME CARE DOCUMENTATION FORM, IMPORTANT VISIT INFORMATION Patient Instructions ED Sciatica, My [facility] Additional Instructions Make sure you get your prescription for prednisone filled and start taking it tomorrow. Take all your other medicines as prescribed. Follow-up with your family doctor for referral to a spinal orthopedist. Problem Qualifiers Primary Impression: Low back pain with right-sided sciatica Chronicity: acute Back pain laterality: right Qualified Codes: M54.41 - Lumbago with sciatica, right side
[2017-02-15 22:01] VITALS: BP 169/99; PULSE 70; O2SAT 96
[2017-03-03] MEDS ORDERED: NAPR-22 PO (13:16)
== END 2017-02-15 22:02 | disposition home or self-care (01) ==
LOC: EDBD 19:03 → C.EDC 19:05
DX: M54.41 Lumbago with sciatica, right side (principal); E11.9 Type 2 diabetes mellitus without complications; F31.9 Bipolar disorder, unspecified; Z79.899 Other long term (current) drug therapy; Z81.8 Family history of other mental and behavioral disorders

== ENCOUNTER 2017-03-03 12:21 | Inpatient (IN) | payer OTHER ==
[~2017-03-03] VITALS: Ht 195.6 cm; Wt 86.3 kg
[~2017-03-03 12:21] MED LIST changes: -LITH1TAB10 PO; +LTHSR/300 PO; -PRED20TA2 PO
--- NOTE | 2017-03-03 12:43 | EMERGENCY ROOM VISIT NOTE ---
History Report prepared by Jarrod: Torsten Martinez Under the Supervision of: Dr. Tuan Chambers M.D. First contact with patient: 12:27 Chief Complaint: HIP PAIN Stated Complaint: LOWER BACK PAIN History of Present Illness The patient is a 46 year old male who presents to the Emergency Room with vague complaints of right hip pain that has been worsening with unknown mechanism of inversion injury. The patient has been taking Naproxen twice a day and recently finished a course of prednisone. The patient was unable to take Lorazepam due to difficulty walking to the office. He has had difficulty walking and hip pain for the past few months and has not seen a back specialist. 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 A total of 10 systems reviewed and were otherwise negative. Past Medical & Surgical Medical Problems: (1) Bipolar disorder (2) Depression (3) Diabetes mellitus (4) Feeling suicidal (5) Pinched nerve Family History Depression Social History Smoking Status: Never Smoker Alcohol Use: none Drug Use: none Marital Status: single, Housing Status: other Occupation Status: disabled Current/Historical Medications Scheduled Carbamazepine (Tegretol), 400 MG PO BID Hydrochlorothiazide (Hydrochlorothiazide), 12.5 MG PO DAILY [place] Carbonate (Hale Carbonate), 300 MG PO QPM [place] Carbonate Ext Rel (Lithobid Ext Rel), 450 MG PO BID Lorazepam (Ativan), 0.5 MG PO BID Naproxen (Naprosyn), 500 MG PO BID Risperidone (Risperdal), 3 MG PO BID Allergies Coded Allergies: No Known Allergies (Verified , `, 02/15/17) Physical Exam Vital Signs Date Time Temp Pulse Resp B/P (MAP) Pulse Ox O2 Delivery O2 Flow Rate FiO2 03/03/17 16:40 78 20 139/85 96 Room Air 03/03/17 15:10 79 20 155/106 98 03/03/17 12:28 36.9 85 16 136/83 96 Room Air Physical Exam GENERAL: Patient is well appearing and in minimal distress. HEENT: No acute trauma, normocephalic atraumatic, mucous membranes moist, no nasal congestion, no scleral icterus. NECK: No stridor, no adenopathy, no meningismus, trachea is midline. LUNGS: No dyspnea. Clear to auscultation and equal bilaterally. No wheeze, no rhonchi. HEART: Regular rate and rhythm. No murmurs, rubs, gallops appreciated. ABDOMEN: Soft, nontender, bowel sounds positive, no masses appreciated, no peritonitis. BACK: No midline tenderness, no CVA tenderness. EXTREMITIES: He clearly moves right hip without problem and right leg without issue. But when asked, he states he cannot move. No cyanosis. Chronic edema bilateral lower extremities. NEUROLOGIC: Alert and oriented, no acute motor or sensory deficits, no focal weakness, cranial nerves grossly intact. SKIN: No rash, no jaundice, no diaphoresis. Medical Decision & Procedures ER Provider Diagnostic Interpretation: Radiology results and stated below per my review and radiologist interpretation: LUMBAR SPINE 3 VIEWS CLINICAL HISTORY: Chronic low back pain. FINDINGS: AP, lateral, and coned-down views of the lumbar spine are compared to study dated 02/09/2017. The skeletal structures are well mineralized. There is no radiographic evidence of fracture or malalignment. Vertebral body height and alignment are maintained throughout the lumbar spine. Mild wedging of T12 is similar to previous. The transverse and spinous processes are intact. Anterior osteophytes are seen throughout. Facet arthropathy is noted in the lower lumbar region. There is mild to moderate disc space narrowing and endplate sclerosis at L5-S1. Minimal disc space narrowing is seen at the remaining lumbar levels. The bony pelvis is intact as visualized. Mild sclerotic change is noted in the sacroiliac joints. There are numerous pelvic phleboliths. No bowel obstruction is seen. IMPRESSION: 1. No acute bony abnormality is seen involving the lumbar spine. 2. Spondylotic change as above. Dictated: 03/03/2017 1:10 PM Transcribed: 03/03/2017 1:39 PM [email or web address] Electronically signed by: Ashu Caldwell M.D. 03/03/2017 1:43 PM Dictated Date/Time: 03/03/2017 1:10 PM SINGLE VIEW PELVIS; 2 VIEWS RIGHT HIP CLINICAL HISTORY: Chronic back pain. Right hip pain. FINDINGS: An AP view of the pelvis with AP and frog-leg views of the right hip are compared to study dated 02/09/2017. The skeletal structures appear well mineralized. No fracture is seen involving the bony pelvis. Mild arthritic change and joint space narrowing is noted in both hips. Sclerotic change is seen in the sacroiliac joints. Lumbosacral spondylosis is partially imaged. There are numerous pelvic phlebolith. The overlying soft tissues are within normal limits. IMPRESSION: No acute bony abnormality is seen involving the hips or pelvis. Electronically signed by: Ashu Caldwell M.D. 03/03/2017 1:14 PM Dictated Date/Time: 03/03/2017 1:13 PM Laboratory Results 03/03/17 15:00 Red Blood Count 5.45, Mean Corpuscular Volume 63.7, Mean Corpuscular Hemoglobin 19.8, Mean Corpuscular Hemoglobin Concent 31.1, Mean Platelet Volume 9.9, Neutrophils (%) (Auto) 81.1, Lymphocytes (%) (Auto) 10.8, Monocytes (%) (Auto) 5.8, Eosinophils (%) (Auto) 1.7, Basophils (%) (Auto) 0.3, Neutrophils # (Auto) 7.85, Lymphocytes # (Auto) 1.04, Monocytes # (Auto) 0.56, Eosinophils # (Auto) 0.16, Basophils # (Auto) 0.03 03/03/17 15:00 Test 03/03/17 15:00 White Blood Count 9.67 K/uL (4.8-10.8) Red Blood Count 5.45 M/uL (4.7-6.1) Hemoglobin 10.8 g/dL (14.0-18.0) Hematocrit 34.7 % (42-52) Mean Corpuscular Volume 63.7 fL (80-100) Mean Corpuscular Hemoglobin 19.8 pg (25-34) Mean Corpuscular Hemoglobin Concent 31.1 g/dl (32-36) Platelet Count 319 K/uL (130-400) Mean Platelet Volume 9.9 fL (7.4-10.4) Neutrophils (%) (Auto) 81.1 % Lymphocytes (%) (Auto) 10.8 % Monocytes (%) (Auto) 5.8 % Eosinophils (%) (Auto) 1.7 % Basophils (%) (Auto) 0.3 % Neutrophils # (Auto) 7.85 K/uL (1.4-6.5) Lymphocytes # (Auto) 1.04 K/uL (1.2-3.4) Monocytes # (Auto) 0.56 K/uL (0.11-0.59) Eosinophils # (Auto) 0.16 K/uL (0-0.5) Basophils # (Auto) 0.03 K/uL (0-0.2) RDW Standard Deviation 36.9 fL (36.4-46.3) RDW Coefficient of Variation 16.1 % (11.5-14.5) Immature Granulocyte % (Auto) 0.3 % Immature Granulocyte # (Auto) 0.03 K/uL (0.00-0.02) Hypochromasia PRESENT Microcytosis PRESENT Anion Gap 6.0 mmol/L (3-11) Est Creatinine Clear Calc Drug Dose 189.9 ml/min Estimated GFR () 123.9 Estimated GFR (Non- 106.9 BUN/Creatinine Ratio 14.3 (10-20) Calcium Level 9.6 mg/dl (8.5-10.1) Hale Level 0.8 mMOL/L (0.6-1.2) Laboratory results as reviewed by me. Medications Administered Medications (Trade) Dose Ordered Sig/Fabby Route Start Time Stop Time Status Last Admin Dose Admin Dexamethasone Sodium Phosphate (Dexamethasone Inj Pf) 10 mg NOW ONCE IV 03/03/17 14:00 03/03/17 14:01 DC 03/03/17 15:11 10 MG Ketorolac Tromethamine (Toradol Inj) 30 mg NOW STAT IV 03/03/17 14:49 03/03/17 14:50 DC 03/03/17 15:12 30 MG ED Course 1227: The patient was evaluated in room C2. A complete history and physical exam was performed. 1355: I checked on the patient who is crying and he states we are trying to kill him. He is not willing to get up and states his leg is too weak. I discussed the case with the case specialist and given his previous history, he has a high risk of returning immediately or calling the police. 1357: I discussed the patient's case with Dr. Batista who agrees with a dose of Decadron. 1358: The patient is agreeable to labs and observation in the hospital. 1531: I discussed the patient's case with Dr. Tapia. The patient will be evaluated for further treatment and disposition. 1610: Upon reevaluation, the patient is doing well. Discussed results and treatment plan with the patient. he verbalized understanding and agreement with the treatment plan. The patient will be evaluated for further management. Medical Decision 46 yr old male with chronic low back pain radiating down right hip. This is 4th visit to ED in as many weeks despite steroids and NSAIDs. He is now to point where he states his leg is too weak to even stand up (though review chart seems this has occurred previously). CT from previous with stenosis. He has no urinary/bowel issues and sensation is completely intact. I will note that he is able to move the leg. Repeat xrays unremarkable. He is unwilling, and unlikely it is unable, to walk, but regardless he is failing attempt at keeping him out of ED. I am completely unable to get up to even try getting up despite Toradol. I do not feel we should be starting narcotics in this individual. Reviewed case with Dr Batista as patient unable to get MRI and he notes he will be willing to assess patient and available if patient comes in to hospital. Given his medical and psychiatric history I have asked medicine to evaluate patient. Given IV decadron while awaiting medicine evaluation. Labs unremarkable. Medication Reconcilliation Current Medication List: was personally reviewed by me Blood Pressure Screening Patient's blood pressure: Elevated blood pressure Blood pressure disposition: Elevated BP felt to be situational Consults Time Called: [id number] Consulting Physician: Dr. Batista Returned Call: [phone] Discussed the patient's case with Dr. Batista who agrees with a dose of Decadron. Additional Consults: Time Called: [phone] Consulted Physician: Dr. Tapia Returned Call: [phone] Additional Comments: Discussed the patient's case with Dr. Tapia. The patient will be evaluated for further treatment and disposition. Impression Primary Impression: Intractable back pain Additional Impressions: Ambulatory dysfunction Sciatica, right side Scribe Attestation The scribe's documentation has been prepared under my direction and personally reviewed by me in its entirety. I confirm that the note above accurately reflects all work, treatment, procedures, and medical decision making performed by me. Departure Information Dispostion Being Evaluated By Hospitalist Referrals No Doctor, Assigned (PCP) Patient Instructions [facility] Problem Qualifiers
[2017-03-03] MEDS ORDERED: NAPR-1169 PO (13:16)
--- NOTE | 2017-03-03 13:16 | DIAGNOSTIC IMAGING REPORT ---
SINGLE VIEW PELVIS; 2 VIEWS RIGHT HIP CLINICAL HISTORY: Chronic back pain. Right hip pain. FINDINGS: An AP view of the pelvis with AP and frog-leg views of the right hip are compared to study dated 02/09/2017. The skeletal structures appear well mineralized. No fracture is seen involving the bony pelvis. Mild arthritic change and joint space narrowing is noted in both hips. Sclerotic change is seen in the sacroiliac joints. Lumbosacral spondylosis is partially imaged. There are numerous pelvic phlebolith. The overlying soft tissues are within normal limits. IMPRESSION: No acute bony abnormality is seen involving the hips or pelvis. Electronically signed by: Ashu Caldwell M.D. 03/03/2017 1:14 PM Dictated Date/Time: 03/03/2017 1:13 PM
--- NOTE | 2017-03-03 13:39 | DIAGNOSTIC IMAGING REPORT ---
LUMBAR SPINE 3 VIEWS CLINICAL HISTORY: Chronic low back pain. FINDINGS: AP, lateral, and coned-down views of the lumbar spine are compared to study dated 02/09/2017. The skeletal structures are well mineralized. There is no radiographic evidence of fracture or malalignment. Vertebral body height and alignment are maintained throughout the lumbar spine. Mild wedging of T12 is similar to previous. The transverse and spinous processes are intact. Anterior osteophytes are seen throughout. Facet arthropathy is noted in the lower lumbar region. There is mild to moderate disc space narrowing and endplate sclerosis at L5-S1. Minimal disc space narrowing is seen at the remaining lumbar levels. The bony pelvis is intact as visualized. Mild sclerotic change is noted in the sacroiliac joints. There are numerous pelvic phleboliths. No bowel obstruction is seen. IMPRESSION: 1. No acute bony abnormality is seen involving the lumbar spine. 2. Spondylotic change as above. Dictated: 03/03/2017 1:10 PM Transcribed: 03/03/2017 1:39 PM [email or web address] Electronically signed by: Ashu Caldwell M.D. 03/03/2017 1:43 PM Dictated Date/Time: 03/03/2017 1:10 PM
[2017-03-03] MEDS ORDERED: DEXAMETHASONE **PF** INJ 10 MG/ML VIAL IV ONE (14:00)
[2017-03-03] MEDS ORDERED: KETOROLAC TROMETHAMINE 30 MG/ML VIAL IV STA (14:49)
[2017-03-03 15:09] LABS: BASO % 0.3 %; BASO ABS # 0.03 K/uL (0-0.2); EOS % 1.7 %; EOS ABS # 0.16 K/uL (0-0.5); HEMATOCRIT 34.7 % (42-52); HEMOGLOBIN 10.8 g/dL (14.0-18.0); IG# 0.03 K/uL (0.00-0.02); LYMPH % 10.8 %; LYMPH ABS # 1.04 K/uL (1.2-3.4); MEAN CELL VOLUME 63.7 fL (80-100); MEAN CORPUSCULAR HEMOGLOBIN 19.8 pg (25-34); MEAN CORPUSCULAR HGB CONC 31.1 g/dl (32-36); MEAN PLATELET VOLUME 9.9 fL (7.4-10.4); MONO % 5.8 %; MONO ABS # 0.56 K/uL (0.11-0.59); NEUT % 81.1 %; NEUT ABS # 7.85 K/uL (1.4-6.5); PLATELET COUNT 319 K/uL (130-400); RED CELL DISTRIBUTION WIDTH CV 16.1 % (11.5-14.5); RED CELL DISTRIBUTION WIDTH SD 36.9 fL (36.4-46.3); WHITE BLOOD COUNT 9.67 K/uL (4.8-10.8)
[2017-03-03 15:27] LABS: CALCIUM 9.6 mg/dl (8.5-10.1); CREATININE 0.79 mg/dl (0.60-1.40); POTASSIUM 4.3 mmol/L (3.5-5.1)
--- NOTE | 2017-03-03 17:36 | History and Physical ---
History & Physical Date & Time of Service: Mar 03, 2017 at 17:30 Chief Complaint: Lower Back Pain Primary Care Physician: Johnnie Mckeon D.O. History of Present Illness 46 yo male presents to the hospital via BLS from a nursing home with complaints of back pain in the lumbar region with intractable back pain for past 4 months. Pain has been intermittent which required patient to come to the hospital on 3 separate location: February 09, February 10 and early February. Patient was not admitted in either of these visits. Patient was given high dose steroids and discharged on 50 mg of prednisone. Patient reports that this did help control the pain. However this am, patient awoke with a different kind of pain. Normally his pain was located on the right buttock and would shoot down to his right foot. Today however, it is an intermittent sharp 10/10 pain, that is located midline, posteriorly on the lumbar region. Pain however does not radiate. Pain worsens when he extends his back or does a pelvic lift while supine,or when he weight bears. No pain when he flexes. P Patient has pain while extending his back while in bed (lifting his buttocks. Patient reports that due to the pain, he is unable to ambulate and drags his leg. Past Medical/Surgical History Medical Problems: (1) Bipolar disorder Status: Chronic (2) Depression Status: Chronic (3) Diabetes mellitus Status: Chronic (4) Feeling suicidal Status: Chronic (5) Pinched nerve Status: Resolved Family History Depression Social History Smoking Status: Never Smoker Smokeless Tobacco Use: No Drug Use: none Marital Status: single, Housing status: lives alone Occupational Status: disabled Immunizations History of Influenza Vaccine: Yes Influenza Vaccine Date: Apr 17, 2013 History of Tetanus Vaccine?: UNSURE History of Pneumococcal: Yes Pneumococcal Date: Apr 17, 2013 History of Hepatitis B Vaccine: Unknown Multi-Drug Resistant Organisms History of MDRO: No Allergies Coded Allergies: No Known Allergies (Verified , `, 02/15/17) Home Medications Scheduled Carbamazepine (Tegretol), 400 MG PO BID Hydrochlorothiazide (Hydrochlorothiazide), 12.5 MG PO DAILY [place] Carbonate ([place] Carbonate), 300 MG PO QPM [place] Carbonate Ext Rel (Lithobid Ext Rel), 450 MG PO BID Lorazepam (Ativan), 0.5 MG PO BID Naproxen (Naprosyn), 500 MG PO BID Risperidone (Risperdal), 3 MG PO BID Review of Systems Constitutional: No fever, No chills Eyes: No worsening of vision, No eye pain ENT: No hearing loss Respiratory: No cough, No sputum Cardiovascular: No chest pain, No orthopnea Abdomen: No pain, No nausea Musculoskeletal: + joint pain, No muscle pain Neurologic: + weakness, No memory loss, No paralysis Psychiatric: No depression symptoms Endocrine: No fatigue Hematologic / Lymphatic: No abnormal bleeding/bruising Integumentary: No rash, No itch Allergic / Immunologic: No environmental allergies Physical Exam Vital Signs Date Time Temp Pulse Resp B/P (MAP) Pulse Ox O2 Delivery O2 Flow Rate FiO2 03/03/17 16:40 78 20 139/85 96 Room Air 03/03/17 15:10 79 20 155/106 98 03/03/17 12:28 36.9 85 16 136/83 96 Room Air General Appearance: WD/WN, no apparent distress Head: normocephalic Eyes: normal inspection ENT: normal ENT inspection Neck: supple, no adenopathy Respiratory/Chest: chest non-tender, lungs clear, normal breath sounds Cardiovascular: regular rate, rhythm, no edema Abdomen/GI: normal bowel sounds, non tender, soft Back: + pertinent finding (No tenderness to palpation, no pain on flexion, pain on lumbar extension, normal sensations in lower extremity.) Extremities/Musculoskelatal: normal inspection Neurologic/Psych: alert, oriented x 3 Skin: normal color Lymphatic: no adenopathy Diagnostics Laboratory Results Results Past 24 Hours Test 03/03/17 15:00 Range/Units White Blood Count 9.67 4.8-10.8 K/uL Red Blood Count 5.45 4.7-6.1 M/uL Hemoglobin 10.8 14.0-18.0 g/dL Hematocrit 34.7 42-52 % Mean Corpuscular Volume 63.7 80-100 fL Mean Corpuscular Hemoglobin 19.8 25-34 pg Mean Corpuscular Hemoglobin Concent 31.1 32-36 g/dl Platelet Count 319 130-400 K/uL Mean Platelet Volume 9.9 7.4-10.4 fL Neutrophils (%) (Auto) 81.1 % Lymphocytes (%) (Auto) 10.8 % Monocytes (%) (Auto) 5.8 % Eosinophils (%) (Auto) 1.7 % Basophils (%) (Auto) 0.3 % Neutrophils # (Auto) 7.85 1.4-6.5 K/uL Lymphocytes # (Auto) 1.04 1.2-3.4 K/uL Monocytes # (Auto) 0.56 0.11-0.59 K/uL Eosinophils # (Auto) 0.16 0-0.5 K/uL Basophils # (Auto) 0.03 0-0.2 K/uL RDW Standard Deviation 36.9 36.4-46.3 fL RDW Coefficient of Variation 16.1 11.5-14.5 % Immature Granulocyte % (Auto) 0.3 % Immature Granulocyte # (Auto) 0.03 0.00-0.02 K/uL Hypochromasia PRESENT Microcytosis PRESENT Sodium Level 140 136-145 mmol/L Potassium Level 4.3 3.5-5.1 mmol/L Chloride Level 103 98-107 mmol/L Carbon Dioxide Level 31 21-32 mmol/L Anion Gap 6.0 3-11 mmol/L Blood Urea Nitrogen 11 7-18 mg/dl Creatinine 0.79 0.60-1.40 mg/dl Est Creatinine Clear Calc Drug Dose 189.9 ml/min Estimated GFR () 123.9 Estimated GFR (Non- 106.9 BUN/Creatinine Ratio 14.3 10-20 Random Glucose 103 70-99 mg/dl Calcium Level 9.6 8.5-10.1 mg/dl [place] Level 0.8 0.6-1.2 mMOL/L Diagnostic Radiology SINGLE VIEW PELVIS; 2 VIEWS RIGHT HIP CLINICAL HISTORY: Chronic back pain. Right hip pain. FINDINGS: An AP view of the pelvis with AP and frog-leg views of the right hip are compared to study dated 02/09/2017. The skeletal structures appear well mineralized. No fracture is seen involving the bony pelvis. Mild arthritic change and joint space narrowing is noted in both hips. Sclerotic change is seen in the sacroiliac joints. Lumbosacral spondylosis is partially imaged. There are numerous pelvic phlebolith. The overlying soft tissues are within normal limits. IMPRESSION: No acute bony abnormality is seen involving the hips or pelvis. LUMBAR SPINE 3 VIEWS CLINICAL HISTORY: Chronic low back pain. FINDINGS: AP, lateral, and coned-down views of the lumbar spine are compared to study dated 02/09/2017. The skeletal structures are well mineralized. There is no radiographic evidence of fracture or malalignment. Vertebral body height and alignment are maintained throughout the lumbar spine. Mild wedging of T12 is similar to previous. The transverse and spinous processes are intact. Anterior osteophytes are seen throughout. Facet arthropathy is noted in the lower lumbar region. There is mild to moderate disc space narrowing and endplate sclerosis at L5-S1. Minimal disc space narrowing is seen at the remaining lumbar levels. The bony pelvis is intact as visualized. Mild sclerotic change is noted in the sacroiliac joints. There are numerous pelvic phleboliths. No bowel obstruction is seen. IMPRESSION: 1. No acute bony abnormality is seen involving the lumbar spine. 2. Spondylotic change as above. Dictated: 03/03/2017 1:10 PM Transcribed: 03/03/2017 1:39 PM [facility] Electronically signed by: Ashu Caldwell M.D. Impression Assessment and Plan Intractable back pain with ambulatory dysfunction in a 46 yo male with difficulty initating to urinate likely secondary to spinal stenosis. Will admit to [facility]. under obs Patient received IV Decadron Will give solumedrol tomorrow 40 q 12h Patient will be consulted with ortho tomorrow. will consult PT/OT Patient has had multiple encounters in the ER due to this problem This is why patient will be seen by ortho. Dr. petersen is aware Patient may likely benefit from an epidural as an outpatient. Will await Ortho input. Bipolar D/O continue Risperdal and lithium cont. ativan Hypertension Cont. HCTZ. Level of Care Med/Surg Advanced Directives Existing Advance Directive: No Existing Living Will: No Existing Power of Engineering Geologist: No Existing Health Care Proxy: No Resuscitation Status FULL RESUSCITATION VTE Prophylaxis VTE Risk Assessment Done? Y/N: Yes Risk Level: Low Given or contraindicated: Unfractionated heparin SQ
[2017-03-03] MEDS ORDERED: ACETAMINOPHEN 325 MG TAB PO PRN ×2 (17:45→18:30)
[2017-03-03 18:20] VITALS: O2SAT 97; Ht 195.6 cm; Wt 86.3 kg
[2017-03-03] MEDS ORDERED: OXYCODONE HCL IR 5 MG TAB (IMMEDIATE RELEASE) PO PRN (18:30)
[2017-03-03 19:25] VITALS: BP 195/98; PULSE 72; TEMP 36.6; O2SAT 95
[2017-03-03 19:29] VITALS: BP_SYST 173; BP_SYST 185; BP_DIAS 92
[2017-03-03 20:30] VITALS: BP 160/82
[2017-03-03] MEDS ORDERED: PNEUMOCOCCAL POLYSACCHARIDES 25 MCG/0.5 ML VIAL/SYR IM. ONE (21:00)
[2017-03-03] MEDS: LITHIUM CARBONATE 300 MG PO SCH (21:00)
[2017-03-03] MEDS ORDERED: IV FLUIDS COMPLETED PRN (21:00)
[2017-03-03] MEDS ORDERED: PNEUMOCOCCAL ADMINISTRATION CHARGE ONE (21:00)
[2017-03-03] MEDS: LORAZEPAM 0.5 MG TAB PO SCH (22:33)
[2017-03-03] MEDS: LITHIUM CARBONATE 450 MG TABCR PO SCH (22:33)
[2017-03-03] MEDS: RISPERIDONE 3 MG TAB PO SCH (22:34)
[2017-03-03] MEDS: CARBAMAZEPINE 200 MG TAB PO SCH (22:34)
[2017-03-03] MEDS: METHYLPREDNISOLONE IV 40 MG in SYRINGE 0 ML IV SCH (22:34)
[2017-03-03] MEDS: NAPROXEN 250 MG TAB PO SCH (22:35)
[2017-03-03 22:55] LABS: PTT PATIENT 27.9 SECONDS (21.0-31.0)
[2017-03-03 23:22] VITALS: BP 133/72; PULSE 76; TEMP 37; O2SAT 95
[2017-03-04] MEDS: HEPARIN SOD 5000 UNIT/0.5 ML CARP SQ SCH ×3 (05:56→21:57)
[2017-03-04 07:20] VITALS: BP 151/87; PULSE 65; TEMP 36.9; O2SAT 95
[2017-03-04] MEDS: RISPERIDONE 3 MG TAB PO SCH ×2 (08:47→21:57)
[2017-03-04] MEDS: HYDROCHLOROTHIAZIDE 25 MG TAB PO SCH (08:48)
[2017-03-04] MEDS: LITHIUM CARBONATE 450 MG TABCR PO SCH ×2 (08:48→21:56)
[2017-03-04] MEDS: NAPROXEN 250 MG TAB PO SCH ×2 (08:48→21:59)
[2017-03-04] MEDS: CARBAMAZEPINE 200 MG TAB PO SCH ×2 (08:48→21:56)
[2017-03-04] MEDS: METHYLPREDNISOLONE IV 40 MG in SYRINGE 0 ML IV SCH ×2 (10:27→21:55)
--- NOTE | 2017-03-04 11:19 | Progress Note ---
Subjective Date of Service: Mar 04, 2017. Subjective Pt evaluation today including: conversation w/ patient, physical exam, chart review, lab review, review of studies, review of inpatient medication list Pain: 0 Voiding: [place] catheter in place Pt states when he tries to walk his pain get worse, currently at zero. Pt denies numbness and tingling in bilateral LE. Problem List Medical Problems: (1) Ambulatory dysfunction Status: Acute (2) Infected blister of foot or toe, left Status: Acute (3) Intractable back pain Status: Acute (4) Low back pain with right-sided sciatica Status: Acute (5) Lumbosacral radiculopathy Status: Acute (6) Right-sided low back pain with sciatica Status: Acute (7) Sciatica, right side Status: Acute Review of Systems Musculoskeletal: + problem reported (back pain) Psychiatric: + anxiety All Other Systems: Reviewed and Negative Medications Medications (Trade) Dose Ordered Sig/Fabby Route Start Time Stop Time Status Last Admin Dose Admin Dexamethasone Sodium Phosphate (Dexamethasone Inj Pf) 10 mg NOW ONCE IV 03/03/17 14:00 03/03/17 14:01 DC 03/03/17 15:11 10 MG Ketorolac Tromethamine (Toradol Inj) 30 mg NOW STAT IV 03/03/17 14:49 03/03/17 14:50 DC 03/03/17 15:12 30 MG Heparin Sodium (Porcine) (Heparin Sq 5000 Unit/0.5ml) 5,000 unit Q8H SQ 03/04/17 06:00 04/03/17 05:59 03/04/17 05:56 5,000 UNIT Carbamazepine (Tegretol Tab) 400 mg BID PO 03/03/17 21:00 04/02/17 20:59 03/04/17 08:48 400 MG [place] Carbonate (Eskalith Cr Tab) 450 mg BID PO 03/03/17 21:00 04/02/17 20:59 03/04/17 08:48 450 MG Lorazepam (Ativan Tab) 0.5 mg BID PO 03/03/17 21:00 04/02/17 20:59 03/03/17 22:33 0.5 MG Naproxen (Naprosyn Tab) 500 mg BID PO 03/03/17 21:00 04/02/17 20:59 03/04/17 08:48 500 MG Risperidone (Risperdal Tab) 3 mg BID PO 03/03/17 21:00 04/02/17 20:59 03/04/17 08:47 3 MG Hydrochlorothiazide (Hydrochlorothiazide Tab) 12.5 mg DAILY PO 03/04/17 09:00 04/03/17 08:59 03/04/17 08:48 12.5 MG [place] Carbonate ([place] Carbonate Tab) 300 mg DAILY@1600 PO 03/03/17 21:00 04/02/17 20:59 03/03/17 21:00 300 MG Methylprednisolone Sodium Succinate 40 mg/Syringe 0.64 ml @ 1.5 mls/min Q12H IV 03/03/17 22:00 04/02/17 21:59 03/04/17 10:27 1.5 MLS/MIN Pneumococcal Polysaccharide Vaccine (Pneumovax-23 Inj) 25 mcg ONCE ONCE IM. 03/03/17 21:00 03/03/17 21:01 DC 03/04/17 08:56 25 MCG Objective Vital Signs Date Time Temp Pulse Resp B/P (MAP) Pulse Ox O2 Delivery O2 Flow Rate FiO2 03/04/17 08:05 Room Air 03/04/17 07:20 36.9 65 18 151/87 (108) 95 Room Air 03/03/17 23:22 37.0 76 16 133/72 (92) 95 Room Air 03/03/17 20:30 160/82 (108) 03/03/17 19:29 185/92 (123) 03/03/17 19:29 173/92 (119) 03/03/17 19:25 95 Room Air 03/03/17 19:25 36.6 72 20 195/98 (130) 95 Room Air 03/03/17 19:06 76 20 162/75 97 03/03/17 18:28 74 20 156/82 97 Room Air 03/03/17 18:20 97 Room Air 03/03/17 16:40 78 20 139/85 96 Room Air 03/03/17 15:10 79 20 155/106 98 03/03/17 12:28 36.9 85 16 136/83 96 Room Air Physical Exam General Appearance: WD/WN, no apparent distress Neck: supple Respiratory/Chest: chest non-tender, lungs clear Cardiovascular: regular rate, rhythm, no murmur Abdomen: normal bowel sounds, soft Extremities: no pedal edema, no calf tenderness, + pertinent finding (back pain lower spine) Neurologic/Psychiatric: no motor/sensory deficits, alert, normal mood/affect, oriented x 3 Skin: no rash Lymphatic: no adenopathy Laboratory Results Last 24 Hours Test 03/03/17 15:00 03/03/17 22:10 White Blood Count 9.67 K/uL Red Blood Count 5.45 M/uL Hemoglobin 10.8 g/dL Hematocrit 34.7 % Mean Corpuscular Volume 63.7 fL Mean Corpuscular Hemoglobin 19.8 pg Mean Corpuscular Hemoglobin Concent 31.1 g/dl Platelet Count 319 K/uL Mean Platelet Volume 9.9 fL Neutrophils (%) (Auto) 81.1 % Lymphocytes (%) (Auto) 10.8 % Monocytes (%) (Auto) 5.8 % Eosinophils (%) (Auto) 1.7 % Basophils (%) (Auto) 0.3 % Neutrophils # (Auto) 7.85 K/uL Lymphocytes # (Auto) 1.04 K/uL Monocytes # (Auto) 0.56 K/uL Eosinophils # (Auto) 0.16 K/uL Basophils # (Auto) 0.03 K/uL RDW Standard Deviation 36.9 fL RDW Coefficient of Variation 16.1 % Immature Granulocyte % (Auto) 0.3 % Immature Granulocyte # (Auto) 0.03 K/uL Hypochromasia PRESENT Microcytosis PRESENT Sodium Level 140 mmol/L Potassium Level 4.3 mmol/L Chloride Level 103 mmol/L Carbon Dioxide Level 31 mmol/L Anion Gap 6.0 mmol/L Blood Urea Nitrogen 11 mg/dl Creatinine 0.79 mg/dl Est Creatinine Clear Calc Drug Dose 189.9 ml/min Estimated GFR () 123.9 Estimated GFR (Non- 106.9 BUN/Creatinine Ratio 14.3 Random Glucose 103 mg/dl Calcium Level 9.6 mg/dl [place] Level 0.8 mMOL/L Prothrombin Time 11.0 SECONDS Prothromb Time International Ratio 1.0 Activated Partial Thromboplast Time 27.9 SECONDS Partial Thromboplastin Ratio 1.1 Assessment and Plan Intractable back pain with ambulatory dysfunction in a 46 yo male with difficulty imitating to urinate likely secondary to spinal stenosis. Back pain intractable multiple admission s/p multiple steroids rounds Patient received IV Decadron Continue solumedrol tomorrow 40 q 12h ortho input pending. PT/OT pending Dr. petersen is aware Patient may likely benefit from an epidural as an outpatient. Bipolar D/O continue Risperdal and lithium cont. ativan Hypertension Cont. HCTZ. if needed use hydralazine 10 mg q 6 prn for SBP>180 Continued [facility] stay due to: inadequate oral pain control Discharge planning: other ([facility])
[2017-03-04] MEDS: LORAZEPAM 0.5 MG TAB PO SCH ×2 (12:18→21:54)
--- NOTE | 2017-03-04 12:38 | Orthopedic Consultation ---
Orthopedic Consultation Date of Consultation: Mar 04, 2017. Attending Physician: Keyon Tapia M.D. Reason for Consultation: Back and right leg pain History of Present Illness This is a 46-year-old male states he symptoms have been present for several months. They're incapacitating in nature. He describes pain involving the right buttock in the inability and weight upon onset of discomfort. Describes electrical type sensations. He denies a precipitating trauma fall or event. He does live in a [place] [facility] at this time. She is requesting transfer to the personal care facility. He is a somewhat difficult historian. He believes that he is unable to have an MRI secondary to metal in his abdomen. He expresses concern that imaging does not provide an accurate diagnosis. He denies any left functionally pain. He states he is comfortable in bed. He states is unable to ambulate at this time. Past Medical/Surgical History Medical Problems: (1) Ambulatory dysfunction Status: Acute (2) Infected blister of foot or toe, left Status: Acute (3) Intractable back pain Status: Acute (4) Low back pain with right-sided sciatica Status: Acute (5) Lumbosacral radiculopathy Status: Acute (6) Right-sided low back pain with sciatica Status: Acute (7) Sciatica, right side Status: Acute Family History Depression Social History Smoking Status: Never Smoker Smokeless Tobacco Use: No Drug Use: none Marital Status: single, Housing Status: other Occupation Status: disabled Allergies Coded Allergies: No Known Allergies (Verified , `, 02/15/17) Home Medications Scheduled Carbamazepine (Tegretol), 400 MG PO BID Hydrochlorothiazide (Hydrochlorothiazide), 12.5 MG PO DAILY [place] Carbonate ([place] Carbonate), 300 MG PO QPM [place] Carbonate Ext Rel (Lithobid Ext Rel), 450 MG PO BID Lorazepam (Ativan), 0.5 MG PO BID Naproxen (Naprosyn), 500 MG PO BID Risperidone (Risperdal), 3 MG PO BID Current Inpatient Medications Current Inpatient Medications Medications (Trade) Dose Ordered Sig/Fabby Route Start Time Stop Time Status Last Admin Dose Admin Heparin Sodium (Porcine) (Heparin Sq 5000 Unit/0.5ml) 5,000 unit Q8H SQ 03/04/17 06:00 04/03/17 05:59 03/04/17 05:56 5,000 UNIT Acetaminophen (Tylenol Tab) 650 mg Q4H PRN PO 03/03/17 17:45 04/02/17 17:44 Oxycodone HCl (Roxicodone Immediate Rel Tab) 5 mg Q6H PRN PO 03/03/17 18:30 03/17/17 18:29 Carbamazepine (Tegretol Tab) 400 mg BID PO 03/03/17 21:00 04/02/17 20:59 03/04/17 08:48 400 MG [place] Carbonate (Eskalith Cr Tab) 450 mg BID PO 03/03/17 21:00 04/02/17 20:59 03/04/17 08:48 450 MG Lorazepam (Ativan Tab) 0.5 mg BID PO 03/03/17 21:00 04/02/17 20:59 03/04/17 12:18 0.5 MG Naproxen (Naprosyn Tab) 500 mg BID PO 03/03/17 21:00 04/02/17 20:59 03/04/17 08:48 500 MG Risperidone (Risperdal Tab) 3 mg BID PO 03/03/17 21:00 04/02/17 20:59 03/04/17 08:47 3 MG Hydrochlorothiazide (Hydrochlorothiazide Tab) 12.5 mg DAILY PO 03/04/17 09:00 04/03/17 08:59 03/04/17 08:48 12.5 MG [place] Carbonate ([place] Carbonate Tab) 300 mg DAILY@1600 PO 03/03/17 21:00 04/02/17 20:59 03/03/17 21:00 300 MG Methylprednisolone Sodium Succinate 40 mg/Syringe 0.64 ml @ 1.5 mls/min Q12H IV 03/03/17 22:00 04/02/17 21:59 03/04/17 10:27 1.5 MLS/MIN Miscellaneous (Iv Fluids Completed) 1 ea PRN PRN N/A 03/03/17 21:00 03/03/18 20:59 Physical Exam Date Time Temp Pulse Resp B/P (MAP) Pulse Ox O2 Delivery O2 Flow Rate FiO2 03/04/17 08:05 Room Air 03/04/17 07:20 36.9 65 18 151/87 (108) 95 Room Air 03/03/17 23:22 37.0 76 16 133/72 (92) 95 Room Air 03/03/17 20:30 160/82 (108) 03/03/17 19:29 185/92 (123) 18 19:29 173/92 (119) 03/03/17 19:25 95 Room Air 03/03/17 19:25 36.6 72 20 195/98 (130) 95 Room Air 03/03/17 19:06 76 20 162/75 97 03/03/17 18:28 74 20 156/82 97 Room Air 03/03/17 18:20 97 Room Air 03/03/17 16:40 78 20 139/85 96 Room Air 03/03/17 15:10 79 20 155/106 98 On exam he is able to sit up in bed without difficulty. He is 64 well over 310 pounds. He demonstrated very poor muscle tone in the upper extremity's. Looks from his does reveal postoperative Plantar flexion dorsiflexion citrus longus. His reasonable quadriceps strength. He has peripheral neuropathy and decreased sensation below his ankles. Reasonable sensation along the quadriceps and calf musculature. Laboratory Results Last 24 Hours Test 03/03/17 15:00 03/03/17 22:10 White Blood Count 9.67 K/uL Red Blood Count 5.45 M/uL Hemoglobin 10.8 g/dL Hematocrit 34.7 % Mean Corpuscular Volume 63.7 fL Mean Corpuscular Hemoglobin 19.8 pg Mean Corpuscular Hemoglobin Concent 31.1 g/dl Platelet Count 319 K/uL Mean Platelet Volume 9.9 fL Neutrophils (%) (Auto) 81.1 % Lymphocytes (%) (Auto) 10.8 % Monocytes (%) (Auto) 5.8 % Eosinophils (%) (Auto) 1.7 % Basophils (%) (Auto) 0.3 % Neutrophils # (Auto) 7.85 K/uL Lymphocytes # (Auto) 1.04 K/uL Monocytes # (Auto) 0.56 K/uL Eosinophils # (Auto) 0.16 K/uL Basophils # (Auto) 0.03 K/uL RDW Standard Deviation 36.9 fL RDW Coefficient of Variation 16.1 % Immature Granulocyte % (Auto) 0.3 % Immature Granulocyte # (Auto) 0.03 K/uL Hypochromasia PRESENT Microcytosis PRESENT Sodium Level 140 mmol/L Potassium Level 4.3 mmol/L Chloride Level 103 mmol/L Carbon Dioxide Level 31 mmol/L Anion Gap 6.0 mmol/L Blood Urea Nitrogen 11 mg/dl Creatinine 0.79 mg/dl Est Creatinine Clear Calc Drug Dose 189.9 ml/min Estimated GFR () 123.9 Estimated GFR (Non- 106.9 BUN/Creatinine Ratio 14.3 Random Glucose 103 mg/dl Calcium Level 9.6 mg/dl [place] Level 0.8 mMOL/L Prothrombin Time 11.0 SECONDS Prothromb Time International Ratio 1.0 Activated Partial Thromboplast Time 27.9 SECONDS Partial Thromboplastin Ratio 1.1 Assessment & Plan Assessment lumbar spinal stenosis with radiculopathy. Patient does have a CAT scan performed in January of this year that demonstrates severe marked facet hypertrophy at L4 5 obvious lateral recess stenosis. There is marked disc space collapse retrolisthesis L5-S1 with significant neural foraminal stenosis. At this time I would like to obtain an MRI of the lumbar spine if able. I am concerned regarding his mental capacity to undergo any lumbar surgical procedure. The quite challenging both from his physical habitus as well as his ability to comprehend what is trying to be done for him. We'll make further recommendations after imaging.
--- NOTE | 2017-03-04 15:05 | DIAGNOSTIC IMAGING REPORT ---
LUMBAR SPINE W/O CONTRAST CLINICAL HISTORY: 46 years-old Male with back and leg pain. Acute low back pain which radiates into the right leg for 4 months. No history of cancer. COMPARISON: Lumbar spine radiographs 03/03/2017, CT abdomen and pelvis 06/16/2011 TECHNIQUE: Multiplanar, multi sequence MRI of the lumbar spine was performed without intravenous contrast. FINDINGS: The large field view clinical fellow localizer images demonstrate an indeterminate 11 mm T2 hyperintense lesion of the left kidney which may reflect a renal cyst. Mildly homogeneously decreased T1 marrow signal is noted throughout the sacrum and lumbar spine. Modic type II endplate degenerative changes are seen at L5-S1 with moderate intervertebral disc space narrowing as below. Mild disc desiccation at L4-L5. Moderate bilateral facet effusions at L4-L5. No acute fracture, subluxation or focal bone marrow edema. Signal within the spinal cord appears to be normal. Conus medullaris terminates at the L1 level. T12-L1: No central canal or neural foraminal stenosis. L1-L2: No central canal or neural foraminal stenosis. Mild facet arthrosis. L2-L3: No central canal or neural foraminal stenosis. Mild facet arthrosis. L3-L4: Small broad-based posterior disc bulge with mild disc desiccation and mild facet arthrosis. No central canal or foraminal narrowing. L4-L5: Mild disc desiccation and mild intervertebral disc space narrowing with circumferential annular disc bulge and right lateral recess annular fissure. Moderate facet arthrosis with bilateral facet effusions. These findings cause mild central canal and mild to moderate right foraminal narrowing. Left foramen is patent. L5-S1: Moderate intervertebral disc space narrowing with endplate spurring, 6 mm retrolisthesis L5 on S1 and circumferential annular disc bulge with mild facet arthrosis and ligament of flavum thickening. Mild facet arthrosis. No significant central canal narrowing. There is however mild to moderate right and moderate left foraminal narrowing. IMPRESSION: 1. Homogeneously mildly decreased T1 marrow signal throughout the imaged spine and sacrum without focal lesion is a nonspecific finding. Differential considerations would include anemia, sequela of smoking or obesity or less likely a myeloproliferative disorder. 2. At L5-S1 there is moderate intervertebral disc space narrowing with endplate spurring, grade 1 retrolisthesis, circumferential annular disc bulge and mild facet arthrosis causing mild to moderate right and moderate left foraminal narrowing. 3. At L4-L5 discogenic degenerative changes with moderate facet arthrosis and bilateral facet effusions cause mild central canal and mild to moderate right foraminal narrowing. The above report was generated using voice recognition software. It may contain grammatical, syntax or spelling errors. Electronically signed by: Jez Gimenez M.D. 03/04/2017 3:04 PM Dictated Date/Time: 03/04/2017 2:07 PM
[2017-03-04] MEDS: LITHIUM CARBONATE 300 MG PO SCH (15:45)
[2017-03-04 15:55] VITALS: BP 146/79; PULSE 70; TEMP 36.5; O2SAT 93
[2017-03-04 22:35] VITALS: BP 151/83; PULSE 64; TEMP 36.8; O2SAT 96
[2017-03-05] MEDS: HEPARIN SOD 5000 UNIT/0.5 ML CARP SQ SCH ×3 (06:01→21:47)
[2017-03-05 07:05] VITALS: BP 169/88; PULSE 65; TEMP 36.6; O2SAT 96
--- NOTE | 2017-03-05 08:33 | Progress Note ---
Progress Note Date of Service Mar 05, 2017. Progress Note Patient continues to complain of back and right buttock pain. An MRI was obtained yesterday afternoon and I was able to review. Demonstrates marked facet hypertrophy lateral recess disease and evidence of instability L45 with disc space collapse retrolisthesis and neural foraminal disease L5-S1. I reviewed these findings with the patient. He has some difficulty comprehending my explanation. Maybe worth considering a consultation with interventional pain management. He would be a candidate for rehabilitation facility. At this point would very much like to avoid any surgical intervention.
[2017-03-05] MEDS: RISPERIDONE 3 MG TAB PO SCH ×2 (08:57→20:55)
[2017-03-05] MEDS: NAPROXEN 250 MG TAB PO SCH (08:57)
[2017-03-05] MEDS: LITHIUM CARBONATE 450 MG TABCR PO SCH ×2 (08:58→20:54)
[2017-03-05] MEDS: HYDROCHLOROTHIAZIDE 25 MG TAB PO SCH (08:58)
[2017-03-05] MEDS: CARBAMAZEPINE 200 MG TAB PO SCH ×2 (08:58→20:55)
[2017-03-05] MEDS ORDERED: NURSING VERBAL MED ORDER ONE (09:15)
[2017-03-05] MEDS: METHYLPREDNISOLONE IV 40 MG in SYRINGE 0 ML IV SCH ×2 (10:10→21:48)
[2017-03-05] MEDS: LORAZEPAM 0.5 MG TAB PO SCH ×2 (11:40→20:54)
[2017-03-05 15:35] VITALS: BP 170/78; PULSE 77; TEMP 36.8; O2SAT 94
[2017-03-05] MEDS: LITHIUM CARBONATE 300 MG PO SCH (17:03)
[2017-03-05] MEDS ORDERED: FAMOTIDINE 20MG/5ML IV PUSH IV STA (17:29)
[2017-03-05] MEDS ORDERED: KETOROLAC TROMETHAMINE 15 MG/ML VIAL IV PRN (17:30)
[2017-03-05] MEDS ORDERED: OXYCODONE/ACETAMINOPHEN 10/325MG TAB PO PRN (17:30)
--- NOTE | 2017-03-05 17:46 | Progress Note ---
Subjective Date of Service: Mar 05, 2017. Subjective Pt evaluation today including: conversation w/ patient, physical exam, chart review, lab review, review of inpatient medication list Problem List Medical Problems: (1) Ambulatory dysfunction Status: Acute (2) Infected blister of foot or toe, left Status: Acute (3) Intractable back pain Status: Acute (4) Low back pain with right-sided sciatica Status: Acute (5) Lumbosacral radiculopathy Status: Acute (6) Right-sided low back pain with sciatica Status: Acute (7) Sciatica, right side Status: Acute Review of Systems Constitutional: + see HPI, + fever, + chills, + sweats, + weight loss, + weakness, + fatigue, + problem reported Eyes: No see HPI, No worsening of vision, No eye pain, No redness, No discharge , No diplopia, No problem reported ENT: No see HPI, No hearing loss, No unusual epistaxis, No nasal symptoms, No sore throat, No tinnitus, No dental problems, No trouble swallowing, No problem reported Respiratory: No see HPI, No cough, No sputum, No wheezing, No shortness of breath, No dyspnea on exertion, No dyspnea at rest, No hemoptysis, No problem reported Cardiac: No see HPI, No chest pain, No orthopnea, No PND, No edema, No claudication, No palpitations, No problem reported Breast: No see HPI, No breast lump, No change in shape, No nipple discharge, No breast pain, No problem reported Abdomen: No see HPI, No pain, No nausea, No vomiting, No diarrhea, No constipation, No GI bleeding, No problem reported Musculoskeletal: + joint pain, + muscle pain Male : No see HPI, No dysuria, No urinary frequency, No incontinence, No nocturia more than once/night, No slowing stream, No hematuria, No sexual dysfunction, No problem reported Neurologic: No see HPI, No memory loss, No paralysis, No weakness, No numbness/ tingling, No vertigo, No balance problems, No problem reported Psychiatric: No see HPI, No depression symptoms, No anhedonism, No anxiety, No insomnia, No substance abuse, No problem reported Heme: No see HPI, No abnormal bleeding/bruising, No clotting problems, No swollen lymph nodes, No night sweats, No problem reported Endo: No see HPI, No fatigue, No excessive thirst, No excessive urination, No problem reported Skin: No see HPI, No rash, No itch, No new/changing skin lesions, No color change, No bleeding, No problem reported Objective Vital Signs Date Time Temp Pulse Resp B/P (MAP) Pulse Ox O2 Delivery O2 Flow Rate FiO2 03/05/17 15:35 36.8 77 18 170/78 (108) 94 Room Air 03/05/17 07:27 Room Air 03/05/17 07:05 36.6 65 18 169/88 (115) 96 Room Air 03/05/17 00:05 Room Air 03/04/17 22:35 36.8 64 16 151/83 (105) 96 Room Air Physical Exam General Appearance: + mild distress, + obese Eyes: normal inspection, EOMI ENT: normal ENT inspection, hearing grossly normal Neck: supple Respiratory/Chest: chest non-tender, lungs clear, normal breath sounds, no respiratory distress, no accessory muscle use Cardiovascular: regular rate, rhythm, no edema, no gallop, no JVD, no murmur Abdomen: normal bowel sounds, non tender, soft, no organomegaly, no pulsatile mass Extremities: normal range of motion, non-tender, + pertinent finding (lower back decreased range of motion/tenderness, left foot has large callus possibly infected on the basis of left toe) Neurologic/Psychiatric: quarter trimmer II-XII nml as tested, no motor/sensory deficits, alert, normal mood/affect, oriented x 3 Skin: normal color, warm/dry, no rash Assessment and Plan 46 year old man morbidly obese admitted to the hospital with intractable lower back pain. Assessment Intractable lower back pain failed outpatient conservative management Morbid obesity Essential Hypertension, uncontrolled left foot has large callus possibly infected on the basis of left toe History of bipolar disorder on lithium Plan Stop oxycodone 5 mg, start patient on Percocet 10 mg every 8 hours when necessary pain Start patient on long-acting oxycodone 20 mg every 12 hours Stop naproxen and start patient on Toradol 15 mg IV every 6 hours when necessary pain Start patient on gentle IV fluid hydration Start Pepcid Continue steroids Consult human resource statistician as per wound care recommendation, will not start antibiotics until human resource statistician examined the foot and obtain deep cultures if needed, as patient does not look toxic or septic Consult pain management as bare Dr. Batista's recommendation Continue thallium and Risperdal If blood pressure remains high after pain control, will start patient on low- dose beta walter Continue heparin subcutaneous for DVT prophylax Continued [facility] stay due to: inadequate oral pain control Discharge planning: other ([facility] custodial)
[2017-03-05] MEDS: SODIUM CHLORIDE 0.9% 1000ML 1,000 ML IV SCH (19:30)
[2017-03-05] MEDS: FAMOTIDINE IV INJ 20 MG in SYRINGE 3 ML IV SCH (19:30)
[2017-03-05] MEDS: OXYCODONE HCL 20 MG TABCR (OXYCONTIN) PO SCH (19:31)
[2017-03-05 19:39] VITALS: BP 132/74; PULSE 78
[2017-03-05] MEDS: ECONAZOLE NITRATE 1% CRM 15 GM TUBE EXT SCH ×2 (21:44→21:48)
[2017-03-05] MEDS: CEPHALEXIN MONOHYDRATE 500 MG CAP PO SCH (21:48)
[2017-03-05 23:20] VITALS: BP 156/85; PULSE 60; TEMP 36.6; O2SAT 95
--- NOTE | 2017-03-06 00:50 | CONSULTATION REPORT ---
DATE OF CONSULTATION: 03/05/2017 HISTORY OF PRESENT ILLNESS: This is a 46-year-old male seen at bedside due to left hallux ulceration at the request of the hospitalist. The patient was admitted on March 03 for back pain radiating down to his right foot with difficulty ambulating and urinating. The patient is a poor historian. He does note seeing Dr. Carney. He has had steroid cream applied to the dorsal aspect of his foot within the past week with no improvement. He is unsure when the blisters started on his left toe, though he does note that he has had ulceration problems on the bottom of his foot previously. He denies fevers, chills and night sweats. He currently ambulates little according to the patient due to this back discomfort. PAST SURGICAL HISTORY: Per chart. PAST MEDICAL HISTORY: Bipolar, depression, diabetes, ambulatory dysfunction. MEDICATIONS: Per chart. ALLERGIES: No known drug allergies. PHYSICAL EXAMINATION: VITAL SIGNS: Stable and afebrile. EXTREMITIES: Lower extremity exam, DP palpable bilaterally. PT palpable bilaterally. Absence of digital hairs noted. [id number] swelling is noted. On the right foot there is minimal swelling noted throughout the left mid foot and fist MTPJ. DERMATOLOGIC: There is an approximately 2 x 2 cm ulceration over the interphalangeal joint plantar medially of the left hallux that has no purulence, no malodor. There is minimal redness around the ulceration into the foot. There is no lymphangeitis. There is no tracking of the ulcerations to the depth of subcutaneous tissue superficial. The patient does not readily allow examination stating "I just want antibiotics." Unable to fully appreciate the thickness. However, does not appear to probe to bone. Eczema noted dorsal right foot with dry serosanguineous drainage and fissure formation. NEUROLOGIC: Epicritic sensation absent distally. MUSCULOSKELETAL: There is some crepitus noted on range of motion in the interphalangeal joint, left hallux with appearance of possible interphalangeal joint sesamoid. No pain noted around the ulceration. IMPRESSION: 1. Myers grade 2 ulceration interphalangeal joint of the left foot. 2. Questionable interphalangeal joint sesamoid bleeding to the ulceration over the left foot. 3. Cellulitis, mild. 4. Ambulatory dysfunction secondary to spinal stenosis. 5. Eczema, rule out tinea, dorsal aspect of the right foot. TREATMENT RECOMMENDATIONS: X-ray, oral Keflex were ordered. Debridement to the level of the subcutaneous tendon was performed at bedside. Dry sterile dressing applied. Recommend continue the dry sterile dressing. Consider graphic design professor evaluation if becomes more ambulatory to offload the area with a DH sandal. The patient is scheduled to be discharged to rehab facility. Would recommend follow up with graphic design professor to offload the ulceration. This can be done as an outpatient. Culture obtained at bedside. We will review the x-rays. I feel there is very low probability of osteo, however, unsure with the history obtained via the patient and unmindedness to participate fully in full exam.
[2017-03-06] MEDS: HEPARIN SOD 5000 UNIT/0.5 ML CARP SQ SCH ×3 (05:48→21:23)
[2017-03-06] MEDS: ECONAZOLE NITRATE 1% CRM 15 GM TUBE EXT SCH ×3 (05:49→21:20)
[2017-03-06] MEDS: OXYCODONE HCL 20 MG TABCR (OXYCONTIN) PO SCH ×2 (05:50→18:21)
--- NOTE | 2017-03-06 06:49 | DIAGNOSTIC IMAGING REPORT ---
L FOOT MIN 3 VIEWS ROUTINE HISTORY: 46 years-old Male ulceration ulceration of the left foot with acute pain COMPARISON: Radiographs of the left toes 12/17/2016 TECHNIQUE: 3 views of the left foot FINDINGS: Mild to moderate degenerative changes involve the first MTP joint with marginal spurring. There is an 8 mm corticated bone fragment medial to the first metatarsal head suggesting accessory ossicle or fragmented osteophyte. The bones are mildly demineralized. No acute fracture or subluxation. Mild degenerative changes are seen throughout the interphalangeal joints. There is moderate marginal spurring and subchondral sclerosis throughout the midfoot. Degenerative changes also noted within the tibiotalar joint. Moderate spurring about the calcaneus at the plantar insertion site with an 8 mm corticated bone fragment within the distribution of the distal Achilles tendon suggesting dystrophic calcification. Mild soft tissue prominence within the region of the distal Achilles. Mild soft tissue swelling about the forefoot. IMPRESSION: 1. Mild soft tissue swelling about the forefoot without acute fracture or subluxation. 2. Mildly demineralized appearance of the bones with degenerative changes as above. The above report was generated using voice recognition software. It may contain grammatical, syntax or spelling errors. Electronically signed by: Jez Gimenez M.D. 03/06/2017 6:47 AM Dictated Date/Time: 03/06/2017 6:44 AM
[2017-03-06 07:09] LABS: BASO % 0.2 %; BASO ABS # 0.02 K/uL (0-0.2); EOS % 0.6 %; EOS ABS # 0.07 K/uL (0-0.5); HEMATOCRIT 36.6 % (42-52); HEMOGLOBIN 11.4 g/dL (14.0-18.0); IG# 0.04 K/uL (0.00-0.02); LYMPH % 15.9 %; LYMPH ABS # 2.02 K/uL (1.2-3.4); MEAN CELL VOLUME 63.4 fL (80-100); MEAN CORPUSCULAR HEMOGLOBIN 19.8 pg (25-34); MEAN CORPUSCULAR HGB CONC 31.1 g/dl (32-36); MEAN PLATELET VOLUME 10.2 fL (7.4-10.4); MONO % 4.6 %; MONO ABS # 0.58 K/uL (0.11-0.59); NEUT % 78.4 %; NEUT ABS # 9.95 K/uL (1.4-6.5); PLATELET COUNT 349 K/uL (130-400); RED CELL DISTRIBUTION WIDTH CV 15.9 % (11.5-14.5); RED CELL DISTRIBUTION WIDTH SD 36.2 fL (36.4-46.3); WHITE BLOOD COUNT 12.68 K/uL (4.8-10.8)
[2017-03-06 07:41] LABS: CALCIUM 9.4 mg/dl (8.5-10.1); CREATININE 0.92 mg/dl (0.60-1.40); POTASSIUM 4.4 mmol/L (3.5-5.1)
[2017-03-06 07:44] LABS: TOTAL PROTEIN 7.1 gm/dl (6.4-8.2)
[2017-03-06 08:26] VITALS: BP 158/90; PULSE 61; TEMP 36.7; O2SAT 96
[2017-03-06] MEDS ORDERED: HYDROCODONE/ACETAMIN 5/325MG TAB PO PRN (09:00)
[2017-03-06] MEDS ORDERED: BACLOFEN 10 MG TAB PO PRN (09:00)
[2017-03-06] MEDS: CEPHALEXIN MONOHYDRATE 500 MG CAP PO SCH ×4 (09:16→21:15)
[2017-03-06] MEDS: HYDROCHLOROTHIAZIDE 25 MG TAB PO SCH (09:16)
[2017-03-06] MEDS: RISPERIDONE 3 MG TAB PO SCH ×2 (09:17→21:15)
[2017-03-06] MEDS: LITHIUM CARBONATE 450 MG TABCR PO SCH ×2 (09:17→21:15)
[2017-03-06] MEDS: CARBAMAZEPINE 200 MG TAB PO SCH ×2 (09:17→21:15)
[2017-03-06] MEDS: METHYLPREDNISOLONE IV 40 MG in SYRINGE 0 ML IV SCH ×2 (09:18→21:20)
[2017-03-06] MEDS ORDERED: GABAPENTIN 300 MG CAP PO STA (09:47)
--- NOTE | 2017-03-06 09:48 | Pain Management Consultation ---
Pain Management Consultation Date of Consultation Mar 06, 2017. Reason for Consultation Low back pain Pain Location 1 - 2 - 3 - History 46-year-old male with history of bipolar disorder and delusional thoughts who presented to the [facility] emergency room 3 times over the end of January and early February. He reports that his pain is worst over his inferior border of the sacrum at the level of the coccyx as well as into the right hip and proximal thigh. When questioned about radicular symptoms past the level of the mid thigh he becomes frustrated and refuses to answer my questions. He denies any known injury as to the etiology of his pain and reports that it worsens with activity and is improved with pain medications such as narcotics and lying in bed. He admits that he has not significantly move around during this hospitalization except to the bedside chair. He characterizes his pain as aching cramping and denies any bowel or bladder incontinence, motor weakness, foot drop, falls, fever, and/or chills. The interview was proceeding in a normal fashion and about correction through the interview the patient interrupts me and tells me that "the thingy in my voice box is preventing my pain from being diagnosis. The thingy is able to regulate my pain and can make it better good depending on how it feels." During this time the patient is pointing to his larynx and left mandible. He tells me that he thinks his pain is probably due to inflammation and asked me a lot of questions about Toradol, Celebrex, Depo steroids. Past Medical/Surgical History (1) S/P wrist surgery (2) Sciatica, right side (3) Ambulatory dysfunction (4) Intractable back pain (5) Cellulitis of foot, right (6) Hypomagnesemia (7) Cellulitis of foot, left (8) Blister of foot (9) Paranoia (10) Delusional thoughts (11) Avulsion of skin of toe (12) Diabetes mellitus (13) Feeling suicidal (14) Pinched nerve (15) Bipolar disorder Family History Depression Social / Work History Smokeless Tobacco Use: No Marital Status: single, Housing Status: other (lives in a penit[facility]) Occupation: disabled Allergies Coded Allergies: No Known Allergies (Verified , `, 02/15/17) Medications Current Inpatient Medications Medications (Trade) Dose Ordered Sig/Fabby Route Start Time Stop Time Status Last Admin Dose Admin Heparin Sodium (Porcine) (Heparin Sq 5000 Unit/0.5ml) 5,000 unit Q8H SQ 03/04/17 06:00 04/03/17 05:59 03/06/17 05:48 5,000 UNIT Acetaminophen (Tylenol Tab) 650 mg Q4H PRN PO 03/03/17 17:45 04/02/17 17:44 Carbamazepine (Tegretol Tab) 400 mg BID PO 03/03/17 21:00 04/02/17 20:59 03/06/17 09:17 400 MG Wilmore Carbonate (Eskalith Cr Tab) 450 mg BID PO 03/03/17 21:00 04/02/17 20:59 03/06/17 09:17 450 MG Risperidone (Risperdal Tab) 3 mg BID PO 03/03/17 21:00 04/02/17 20:59 03/06/17 09:17 3 MG Hydrochlorothiazide (Hydrochlorothiazide Tab) 12.5 mg DAILY PO 03/04/17 09:00 04/03/17 08:59 03/06/17 09:16 12.5 MG Wilmore Carbonate (Wilmore Carbonate Tab) 300 mg DAILY@1600 PO 03/03/17 21:00 04/02/17 20:59 03/05/17 17:03 300 MG Methylprednisolone Sodium Succinate 40 mg/Syringe 0.64 ml @ 1.5 mls/min Q12H IV 03/03/17 22:00 04/02/17 21:59 03/06/17 09:18 1.5 MLS/MIN Miscellaneous (Iv Fluids Completed) 1 ea PRN PRN N/A 03/03/17 21:00 03/03/18 20:59 Lorazepam (Ativan Tab) 0.5 mg BID@1100,2100 PO 03/05/17 11:00 04/02/17 20:59 03/05/17 20:54 0.5 MG Ketorolac Tromethamine (Toradol Inj) 15 mg Q6H PRN IV 03/05/17 17:30 03/10/17 17:29 Sodium Chloride 1,000 ml @ 50 mls/hr Q20H IV 03/05/17 17:30 04/04/17 17:29 03/05/17 19:30 50 MLS/HR Oxycodone HCl (Oxycontin Tab) 20 mg Q12H PO 03/05/17 18:00 03/19/17 17:59 03/06/17 05:50 20 MG Famotidine 20 mg/ Syringe 5 ml @ 2.5 mls/min DAILY@1800 IV 03/05/17 18:00 04/04/17 17:59 03/05/17 19:30 2.5 MLS/MIN Econazole Nitrate (Econazole Nitrate 1% Crm) 1 appln Q8 EXT 03/05/17 19:03 04/04/17 19:02 03/06/17 05:49 1 APPLN Cephalexin Monohydrate (Keflex Cap) 500 mg QID PO 03/05/17 21:00 03/15/17 20:59 03/06/17 09:16 500 MG Lidocaine (Lidoderm Patch 5%) 1 patch QAM TD 03/06/17 09:00 04/05/17 08:59 UNV Miscellaneous (Remove Lidoderm Patch) 1 ea DAILY@21 N/A 03/06/17 21:00 04/05/17 20:59 UNV Baclofen (Lioresal Tab) 10 mg Q8 PRN PO 03/06/17 09:00 04/05/17 08:59 UNV Acetaminophen/ Hydrocodone Bitart ([place] 5/325 Tab) 1 tab Q4H PRN PO 03/06/17 09:00 03/20/17 08:59 UNV Gabapentin (Neurontin Cap) 300 mg TID PO 03/06/17 14:00 04/05/17 13:59 UNV Gabapentin (Neurontin Cap) 300 mg ONE PO 03/06/17 09:15 04/05/17 09:14 UNV Review of Systems 10 point review of systems was otherwise negative aside from HPI Physical Exam Height & Weight: Height 6 feet, 5.00 inches. Weight 156.700 (Kilograms) 345 (Pounds) Last Vital Signs Documentation Date Time Temp Pulse Resp B/P (MAP) Pulse Ox O2 Delivery O2 Flow Rate FiO2 03/06/17 08:26 36.7 61 16 158/90 (112) 96 Room Air Exam: GENERAL: 46-year-old male who is awake, alert and oriented. Appears obese and deconditioned. Is in no distress at the present time. He has flat affect and is slightly uncooperative and answering my questions on examination, the patient was examined in the presence of an MANUFACTURING RECRUITER: Demonstrates normal and clear sensorium. HEAD AND NECK: No obvious trauma. Demonstrates full range of motion of the cervical spine. Trachea midline. He points that many times during the examination to his left mandible and larynx stating "the thingy in my voice box is preventing my pain from being diagnosed" EARS, EYES AND NOSE: Mucous membranes pink and moist. Tongue midline. LUNGS: No audible wheezing or rhonchi. Normal chest excursion. CARDIAC: Regular rate and rhythm BACK: Inspection of the lumbar spine demonstrates normal curvatures. No lesions are noted in the lumbar spine region. He has marginally tender over the lumbosacral junction and over the inferior margin of the sacrum. There is a wound care dressing over his entire sacrum which upon taking the dressing down does not indicate any pressure injury. Provocative testing of the lumbar facet joints bilaterally is negative. He is nontender over the left SI joint but moderately tender over the right. He has a marginally positive right Fabere worsened with hip thrust. He is nontender over bilateral greater trochanters. He has no difficulty log rolling in the bed. Minimal myofascial tenderness noted over the lumbar spine but no trigger points identifiable are noted in the paraspinous musculature. Neurologically, straight leg raising is negative bilaterally past 90 and no changes noted Achilles stretch. Extremities: He has multiple wound care dressings that I did not remove over bilateral heels and left great toe. NEUROLOGICAL: Cranial nerves II through XII grossly intact. No gross sensory or motor deficits noted in the upper extremity. Sensation and motor strength in the lower extremity are symmetrical without deficit with the exception of bilateral diminished sensation in a global fashion over both feet to the level of the ankles. No pathologic reflexes are noted in the lower extremities. Gait is not observed. Reflexes: +1 bilateral L4 and S1 reflexes Laboratory Laboratory Results (Last CBC): 03/06/17 06:07 Red Blood Count 5.77, Mean Corpuscular Volume 63.4 L, Mean Corpuscular Hemoglobin 19.8 L, Mean Corpuscular Hemoglobin Concent 31.1 L, Mean Platelet Volume 10.2, Neutrophils (%) (Auto) 78.4, Lymphocytes (%) (Auto) 15.9, Monocytes (%) (Auto) 4.6, Eosinophils (%) (Auto) 0.6, Basophils (%) (Auto) 0.2, Neutrophils # (Auto) 9.95 H, Lymphocytes # (Auto) 2.02, Monocytes # (Auto) 0.58 , Eosinophils # (Auto) 0.07, Basophils # (Auto) 0.02 Imaging MRI: reports reviewed MRI Findings Patient: DANIA BURGOS Address1: [address] [place] [address] Rec: [id number] Address2: Acct ID: [id number] [facility] Zip: [place] [address] Date: 1970 Sex: M Room/Bed: [facility] Ref Phy: Antoni Anna D.O. SC: Roopa Att Phy: Keyon Tapia M.D. Report #: [id number] Mallika Phy: Johnnie Mckeon D.O. Test: LSWOC Admit Phy: Keyon Tapia M.D. Laborer Cutting Tool: JIMBO Interpreting Phy: Cliff Gimenez D.O. Diagnosis: INTRACTABLE BACK PAIN Ordering Phy: Vinicius Batista D.O. Service Date: 03/04/17 Admit Date: 03/03/1800/20/18 MNE: PWRSCRIBE CONF: DICTATED BY: Cliff Gimenez D.O.]] CC: Vinicius Batista D.O. Goto, Kiyomi K., D.O. Miller, Philip A., D.O. Saborio, George A. M.D. Endcc: [~ rep ct add3]] LUMBAR SPINE W/O CONTRAST CLINICAL HISTORY: 46 years-old Male with back and leg pain. Acute low back pain which radiates into the right leg for 4 months. No history of cancer. COMPARISON: Lumbar spine radiographs 03/03/2017, CT abdomen and pelvis 06/16/2011 TECHNIQUE: Multiplanar, multi sequence MRI of the lumbar spine was performed without intravenous contrast. FINDINGS: The large field view telephone lineman localizer images demonstrate an indeterminate 11 mm T2 hyperintense lesion of the left kidney which may reflect a renal cyst. Mildly homogeneously decreased T1 marrow signal is noted throughout the sacrum and lumbar spine. Modic type II endplate degenerative changes are seen at L5-S1 with moderate intervertebral disc space narrowing as below. Mild disc desiccation at L4-L5. Moderate bilateral facet effusions at L4-L5. No acute fracture, subluxation or focal bone marrow edema. Signal within the spinal cord appears to be normal. Conus medullaris terminates at the L1 level. T12-L1: No central canal or neural foraminal stenosis. L1-L2: No central canal or neural foraminal stenosis. Mild facet arthrosis. L2-L3: No central canal or neural foraminal stenosis. Mild facet arthrosis. L3-L4: Small broad-based posterior disc bulge with mild disc desiccation and mild facet arthrosis. No central canal or foraminal narrowing. L4-L5: Mild disc desiccation and mild intervertebral disc space narrowing with circumferential annular disc bulge and right lateral recess annular fissure. Moderate facet arthrosis with bilateral facet effusions. These findings cause mild central canal and mild to moderate right foraminal narrowing. Left foramen is patent. L5-S1: Moderate intervertebral disc space narrowing with endplate spurring, 6 mm retrolisthesis L5 on S1 and circumferential annular disc bulge with mild facet arthrosis and ligament of flavum thickening. Mild facet arthrosis. No significant central canal narrowing. There is however mild to moderate right and moderate left foraminal narrowing. IMPRESSION: 1. Homogeneously mildly decreased T1 marrow signal throughout the imaged spine and sacrum without focal lesion is a nonspecific finding. Differential considerations would include anemia, sequela of smoking or obesity or less likely a myeloproliferative disorder. 2. At L5-S1 there is moderate intervertebral disc space narrowing with endplate spurring, grade 1 retrolisthesis, circumferential annular disc bulge and mild facet arthrosis causing mild to moderate right and moderate left foraminal narrowing. 3. At L4-L5 discogenic degenerative changes with moderate facet arthrosis and bilateral facet effusions cause mild central canal and mild to moderate right foraminal narrowing. Radiology Findings Patient: DANIA BURGOS Address1: [address] [facility] Rec: [id number] Address2: Acct ID: [id number] [facility] Zip: [place] [address] Date: 1970 Sex: M Room/Bed: Ref Phy: Antoni Anna D.O. SC: RICARDO Att Phy: Report #: [id number] Mallika Phy: Johnnie Mckeon D.O. Test: [id number] Admit Phy: Laborer Cutting Tool: YESEINA Interpreting Phy: Ashu Caldwell M.D. Diagnosis: LOWER BACK PAIN Ordering Phy: Tuan Chambers M.D. Service Date: 03/03/17 Admit Date: 03/03/17 MNE: PWRSCRIBE CONF: DICTATED BY: Ashu Caldwell M.D.]] CC: Antoni Anna D.O. McKinley, Daniel F., M.D. Miller, Philip A., D.O. Endcc: [~ rep ct add3]] SINGLE VIEW PELVIS; 2 VIEWS RIGHT HIP CLINICAL HISTORY: Chronic back pain. Right hip pain. FINDINGS: An AP view of the pelvis with AP and frog-leg views of the right hip are compared to study dated 02/09/2017. The skeletal structures appear well mineralized. No fracture is seen involving the bony pelvis. Mild arthritic change and joint space narrowing is noted in both hips. Sclerotic change is seen in the sacroiliac joints. Lumbosacral spondylosis is partially imaged. There are numerous pelvic phlebolith. The overlying soft tissues are within normal limits. IMPRESSION: No acute bony abnormality is seen involving the hips or pelvis. Other Findings Patient: DANIA BURGOS Address1: [address] [place] [address] Rec: [id number] Address2: Acct ID: [id number] [facility] Zip: [place] [address] Date: 1970 Sex: M Room/Bed: Ref Phy: Antoni Anna D.O. SC: RICARDO Att Phy: Report #: [id number] Mallika Phy: Johnnie Mckeon D.O. Test: [id number] Admit Phy: Laborer Cutting Tool: YESENIA Interpreting Phy: Ashu Caldwell M.D. Diagnosis: LOWER BACK PAIN Ordering Phy: Tuan Chambers M.D. Service Date: 03/03/17 Admit Date: 03/03/17 MNE: PWRSCRIBE CONF: DICTATED BY: Ashu Caldwell M.D.]] CC: Antoni Anna D.O. McKinley, Daniel F., M.D. Miller, Philip A., D.O. Endcc: [~ rep ct add3]] LUMBAR SPINE 3 VIEWS CLINICAL HISTORY: Chronic low back pain. FINDINGS: AP, lateral, and coned-down views of the lumbar spine are compared to study dated 02/09/2017. The skeletal structures are well mineralized. There is no radiographic evidence of fracture or malalignment. Vertebral body height and alignment are maintained throughout the lumbar spine. Mild wedging of T12 is similar to previous. The transverse and spinous processes are intact. Anterior osteophytes are seen throughout. Facet arthropathy is noted in the lower lumbar region. There is mild to moderate disc space narrowing and endplate sclerosis at L5-S1. Minimal disc space narrowing is seen at the remaining lumbar levels. The bony pelvis is intact as visualized. Mild sclerotic change is noted in the sacroiliac joints. There are numerous pelvic phleboliths. No bowel obstruction is seen. IMPRESSION: 1. No acute bony abnormality is seen involving the lumbar spine. 2. Spondylotic change as above. Past Records Previous Records: personally reviewed by me [place] Drug Monitoring Program Search Results: patient reviewed within database, no issues identified Opioid Risk Assessment Risk assessment performed, moderate risk identified 1 prescriber and one pharmacy has been utilized in the last 7 months with prescriptions for benzodiazepines Assessment 1. Bipolar disorder with prior history of delusional thoughts 2. Lumbago 3. Right inflammatory sacroiliitis 4. Possible lumbar radiculitis without myelopathy Recommendations 1. I'm concerned that he is having increasing delusional thoughts with comments about "the thingy in my voice box is controlling my pain and preventing it from being diagnosed." Will consult psychiatry. After speaking with psychiatry about the possible initiation of gabapentin in addition to his other psych meds, they feel it should provide additional mood stabilization for this patient and I will write an order to initiate gabapentin at this time. 2. He is not a candidate for interventional pain procedures due to ongoing foot ulcerations. 3. Will initiate Lidoderm patches, baclofen 10 mg by mouth every 8 when necessary, and gabapentin 300 mg by mouth 3 times a day to diminish pain burden. Orders were written. 4. I have concerns about this patient being sent home on OxyContin as I do not suspect he will be able to obtain of the crush resistant formulation due to insurance constraints. I would recommend wean of long-acting opiates prior to discharge due to risk of misuse and diversion. If the patient is sent to a facility where his medications are administered by a medical professional I would have less concern however I still do not think that long-term utilization of long-acting narcotics in this patient is advisable 5. Will discontinue Percocet and prescribed [place] 5/325 mg 1 by mouth every 4 when necessary pain. 6. Thank you for this consultation
--- NOTE | 2017-03-06 10:45 | Clinical Documentation Query ---
CLINICAL DOCUMENTATION QUERY A medical consultation was done on 03/05/17. During that consultation a debridement was done "to the level of the subcutaneous tendon was performed at bedside." The documentation is lacking 4 of the 5 elements below for coding Best Practice: Excisional Debridement Documentation To ensure that the documentation in the medical record is both complete and compliant for an excisional debridement, the Healthcare Professional should include the following 5 elements in the procedural statement: - The technique used (e.g., excisional, excised, cutting, etc) - The instrument(s) used (e.g., scapel, curette, etc.) - The nature of the tissue removed (e.g., necrotic, devitalized tissues, non-viable tissue, etc) - The appearance and size of the wound (e.g., down to fresh bleeding tissue, 7cm x 10cm, etc) - The depth of the debridement* (e.g., skin, subcutaneous tissue, fascia, muscle, bone, etc.) Please edit medical consultation or submit an updated operative record. Thank You, Javi Mitchell RN [phone]
[2017-03-06] MEDS: LIDODERM (LIDOCAINE) PATCH 5% TD SCH (12:58)
[2017-03-06] MEDS: LORAZEPAM 0.5 MG TAB PO SCH ×2 (13:04→21:15)
[2017-03-06 13:08] VITALS: BP 142/80
--- NOTE | 2017-03-06 13:56 | Psychiatric Consultation ---
Consultation Date of Consultation Mar 06, 2017. Identifying Data Pena 6-year-old male admitted medically with intractable back pain. We are consulted to evaluate psychosis. Information is gathered from the patient, the electronic medical record, and considered to be reliable. Chief Complaint "I have pain depending on how I sit or stand.". History of Present Illness The patient is a 46-year-old gentleman who currently resides at a local retirement with a diagnosis of schizoaffective disorder. He is known to our service from previous consults. The patient has had multiple ER visits in January in February for reports of low back pain and on the day of admission, had had 4 days of increasing pain impairing his ability to function. He was seen by orthopedics, Dr. Batista, who agreed he has spinal stenosis but question whether or not he was capable of making consents for invasive procedures. He was then seen by Dr. Bettencourt for pain management. A phone conversation with Dr. Bettencourt she relayed that the patient had been talking about having a "thingy in his jaw region" that regulated his pain. She noted that he had a pill rolling tremor, was on high doses of medications. She described that he had a stage II ulcer with overlying infection and so was not a candidate for interventional pain management but had a plan to wean narcotics and use alternate agents, for example Neurontin to help manage pain. At the time I see the patient he is sitting in his bedside chair. He tells me he just had his urinary catheter discontinued. He describes his pain is ongoing , variable depending on whether he is sitting or standing. I ask him questions about his references to his jaw pain regulating his back pain and he denied this. He said he has a dislocated jaw but needs to be "realigned. He reviews that he lives in the [facility] and is independent with his medication administration. He reports that his mood has been good since having been discharged from [place] in September 2016. He had been in [place] for several years. He denies any suicidal or homicidal thinking. He denies any auditory or visual hallucinations. There is no clear evidence of distorted thoughts beyond his reports of having a dislocated jaw. At this point in the interview he asks me to close the door because he feels I am not respecting his privacy. I get up and close the door [address] but leave a portion of it open. He insists that I close in the hallway which I am unwilling to do because of his history of intimidating and aggressive behaviors. I informed him that for my own well-being I wanted staff members to be aware that I was in here. He felt that I was disrespecting his need for privacy. I informed him that there was no one in the hallway, no nursing staff and no visitors. I lowered my voice so as not to be heard beyond his room. Past Psychiatric History Current OP Treatment: psychiatrist (Dr. Canas at [facility]), block and case maker ( [place]) Prior Psych Hospitalizations: [place], other ([facility], [facility]) Access to a Gun: No Suicide Attempts: No Past Medication Trials Invega Zyprexa- diabetes Depakote [place] Past Medical/Surgical History (1) Morbid obesity with BMI of 40.0-44.9, adult (2) Obstructive sleep apnea Allergies Allergies: Coded Allergies: No Known Allergies (Verified , `, 02/15/17) Home Medications Scheduled Carbamazepine (Tegretol), 400 MG PO BID Hydrochlorothiazide (Hydrochlorothiazide), 12.5 MG PO DAILY [place] Carbonate ([place] Carbonate), 300 MG PO QPM [place] Carbonate Ext Rel (Lithobid Ext Rel), 450 MG PO BID Lorazepam (Ativan), 0.5 MG PO BID Naproxen (Naprosyn), 500 MG PO BID Risperidone (Risperdal), 3 MG PO BID Family History Depression History of Suicide: Yes (great great grandfather) History of Substance Abuse: No Psychiatric History: No Alcohol Use Alcohol Use In Past 12 Months: No Smoking Use Smoking Status: Never Smoker Personal History Lives in: [place] Childhood: Grew up locally, graduated from [employer] Education: graduated college (bachelors degree in psychology, some work toward a master's) Work History: On disability for mental health reasons Relationship History: Children: 3 children living in [place] with their mother Review of Systems Patient unwilling to participate beyond saying he has back pain that is positional Examination Vital Signs Vital Signs Past 12 Hours Date Time Temp Pulse Resp B/P (MAP) Pulse Ox O2 Delivery O2 Flow Rate FiO2 03/06/17 13:08 142/80 (100) 03/06/17 08:26 36.7 61 16 158/90 (112) 96 Room Air 03/06/17 08:10 Room Air Laboratory Results Last 24 Hours Test 03/06/17 06:07 White Blood Count 12.68 K/uL Red Blood Count 5.77 M/uL Hemoglobin 11.4 g/dL Hematocrit 36.6 % Mean Corpuscular Volume 63.4 fL Mean Corpuscular Hemoglobin 19.8 pg Mean Corpuscular Hemoglobin Concent 31.1 g/dl Platelet Count 349 K/uL Mean Platelet Volume 10.2 fL Neutrophils (%) (Auto) 78.4 % Lymphocytes (%) (Auto) 15.9 % Monocytes (%) (Auto) 4.6 % Eosinophils (%) (Auto) 0.6 % Basophils (%) (Auto) 0.2 % Neutrophils # (Auto) 9.95 K/uL Lymphocytes # (Auto) 2.02 K/uL Monocytes # (Auto) 0.58 K/uL Eosinophils # (Auto) 0.07 K/uL Basophils # (Auto) 0.02 K/uL RDW Standard Deviation 36.2 fL RDW Coefficient of Variation 15.9 % Immature Granulocyte % (Auto) 0.3 % Immature Granulocyte # (Auto) 0.04 K/uL Polychromasia 1+ Basophilic Stippling 1+ Tear Drop Cells 1+ Ovalocytes 2+ Echinocytes 2+ Sodium Level 138 mmol/L Potassium Level 4.4 mmol/L Chloride Level 103 mmol/L Carbon Dioxide Level 31 mmol/L Anion Gap 4.0 mmol/L Blood Urea Nitrogen 16 mg/dl Creatinine 0.92 mg/dl Est Creatinine Clear Calc Drug Dose 163.1 ml/min Estimated GFR () 114.4 Estimated GFR (Non- 98.7 BUN/Creatinine Ratio 16.9 Random Glucose 97 mg/dl Calcium Level 9.4 mg/dl Magnesium Level 2.1 mg/dl Total Bilirubin 0.3 mg/dl Aspartate Amino Transf (AST/SGOT) 15 U/L Alanine Aminotransferase (ALT/SGPT) 49 U/L Alkaline Phosphatase 76 U/L Total Protein 7.1 gm/dl Albumin 3.0 gm/dl Globulin 4.1 gm/dl Albumin/Globulin Ratio 0.7 Mental Examination During interview pt is: alert and oriented, uncooperative Appearance: appropriately groomed Eye contact is: good Motor behavior is: no abnormal motor movements Speech: normal in rate, rhythm & volume Affect: blunted Mood is: irritable Thought process: goal directed Thought content: paranoid Suicidal thought are: denied Homicidal thoughts are: denied Hallucinations: denies auditory, denies visual Cognition: memory grossly intact, attention grossly intact, language grossly intact Intelligence estimated to be: average Insight: limited Judgement: limited Impression / Recommendations Impression 46 year old with persistent mental illness, likely schizoaffective disorder, admitted medically with back pain. He denies any overt hallucinations, but does talk about having a dislocated jaw despite being able to talk and having no pain as he does so. Beyond that he is a limited historian, not wanting to talk about his mental illness for fear someone will here. He accuses me of violating his right to privacy because I will not close the door 100% and be alone in the room with him. I did explain to him my concerns for my own safety , being in a room with a man with a history of aggression which he does not accept. He therefore ends the conversation prematurely. From my limited engagement, the patient appears to be at his baseline. He has always been a difficult individual, with paranoia, and did beliefs. I will have the liaison nurse attempt to get a release of information for his retirement to be sure that there isn't supplemental information indicating he has been in deterioration. This gentleman has spent several years at the [facility] because of his persistent mental illness, and is likely never free of symptomatology. At this time however I see nothing acute that would require adjustment to his medications. In terms of his ability to make decisions, there is no indication that he has power of divorce attorney or guardianship. He has for the most part reality based and I see no gross reason that he would not be able to make his own decisions regarding treatment at this time. Recommendations (1) Schizoaffective disorder 03/06 - Patient is guarded and paranoid, would not complete interview, which is likely his baseline - Presently owed make no recommendations for changing his medications however we will have the liaison nurse attempted to get a release of information for the [facility] so that we can get supplemental information to be sure he is not in deterioration. - [place] level 0.8. - Agree with Dr. Bettencourt suggestions that he should not be maintained on narcotics. I agree with the use of Neurontin. He is already on 2 other mood stabilizing agents and would suggest following liver functioning over time but no relative contraindication to using Neurontin with his current medications. Dr. Shakila burnette is personally been involved in reviewing this case and the development of the recommendations.
[2017-03-06] MEDS: GABAPENTIN 300 MG CAP PO SCH ×2 (14:04→21:15)
[2017-03-06] MEDS: SODIUM CHLORIDE 0.9% 1000ML 1,000 ML IV SCH (14:06)
[2017-03-06 15:48] VITALS: BP 131/81; PULSE 74; TEMP 37.2; O2SAT 94
[2017-03-06] MEDS: LITHIUM CARBONATE 300 MG PO SCH (16:00)
[2017-03-06] MEDS: FAMOTIDINE IV INJ 20 MG in SYRINGE 3 ML IV SCH (18:20)
--- NOTE | 2017-03-06 19:50 | Progress Note ---
Subjective Date of Service: Mar 06, 2017. Subjective Pt evaluation today including: conversation w/ patient, physical exam, chart review, lab review, review of studies, review of inpatient medication list Voiding: no voiding problems Still complaining of lower back pain, does not think that his pain is appropriately controlled Decrease to stop long-acting narcotics as per recommendations of pain management Problem List Medical Problems: (1) Ambulatory dysfunction Status: Acute (2) Infected blister of foot or toe, left Status: Acute (3) Intractable back pain Status: Acute (4) Low back pain with right-sided sciatica Status: Acute (5) Lumbosacral radiculopathy Status: Acute (6) Right-sided low back pain with sciatica Status: Acute (7) Sciatica, right side Status: Acute Review of Systems Constitutional: No see HPI, No fever, No chills, No sweats, No weight loss, No weakness, No fatigue, No problem reported Eyes: No see HPI, No worsening of vision, No eye pain, No redness, No discharge , No diplopia, No problem reported ENT: No see HPI, No hearing loss, No unusual epistaxis, No nasal symptoms, No sore throat, No tinnitus, No dental problems, No trouble swallowing, No problem reported Respiratory: No see HPI, No cough, No sputum, No wheezing, No shortness of breath, No dyspnea on exertion, No dyspnea at rest, No hemoptysis, No problem reported Cardiac: No see HPI, No chest pain, No orthopnea, No PND, No edema, No claudication, No palpitations, No problem reported Breast: No see HPI, No breast lump, No change in shape, No nipple discharge, No breast pain, No problem reported Abdomen: No see HPI, No pain, No nausea, No vomiting, No diarrhea, No constipation, No GI bleeding, No problem reported Musculoskeletal: + joint pain, + muscle pain, + swelling, + problem reported ( back pain), No see HPI, No calf pain Male : No see HPI, No dysuria, No urinary frequency, No incontinence, No nocturia more than once/night, No slowing stream, No hematuria, No sexual dysfunction, No problem reported Neurologic: No see HPI, No memory loss, No paralysis, No weakness, No numbness/ tingling, No vertigo, No balance problems, No problem reported Psychiatric: No see HPI, No depression symptoms, No anhedonism, No anxiety, No insomnia, No substance abuse, No problem reported Heme: No see HPI, No abnormal bleeding/bruising, No clotting problems, No swollen lymph nodes, No night sweats, No problem reported Endo: No see HPI, No fatigue, No excessive thirst, No excessive urination, No problem reported Skin: No see HPI, No rash, No itch, No new/changing skin lesions, No color change, No bleeding, No problem reported Objective Vital Signs Date Time Temp Pulse Resp B/P (MAP) Pulse Ox O2 Delivery O2 Flow Rate FiO2 03/06/17 15:48 37.2 74 16 131/81 (98) 94 Room Air 03/06/17 13:08 142/80 (100) 03/06/17 08:26 36.7 61 16 158/90 (112) 96 Room Air 03/06/17 08:10 Room Air 03/05/17 23:20 Room Air 03/05/17 23:20 36.6 60 16 156/85 (108) 95 Room Air Physical Exam General Appearance: no apparent distress, + obese Eyes: normal inspection, EOMI ENT: normal ENT inspection, hearing grossly normal Neck: supple Respiratory/Chest: chest non-tender, lungs clear, normal breath sounds, no respiratory distress, no accessory muscle use Cardiovascular: regular rate, rhythm, no edema, no gallop, no JVD, no murmur Abdomen: normal bowel sounds, non tender, soft, no organomegaly, no pulsatile mass Extremities: normal range of motion, no pedal edema, + pertinent finding (back tenderness/left foot cellulitis) Neurologic/Psychiatric: 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 health physician II-XII nml as tested, no motor/sensory deficits, alert, normal mood/affect, oriented x 3 Skin: normal color, warm/dry, no rash Laboratory Results Last 24 Hours Test 03/06/17 06:07 White Blood Count 12.68 K/uL Red Blood Count 5.77 M/uL Hemoglobin 11.4 g/dL Hematocrit 36.6 % Mean Corpuscular Volume 63.4 fL Mean Corpuscular Hemoglobin 19.8 pg Mean Corpuscular Hemoglobin Concent 31.1 g/dl Platelet Count 349 K/uL Mean Platelet Volume 10.2 fL Neutrophils (%) (Auto) 78.4 % Lymphocytes (%) (Auto) 15.9 % Monocytes (%) (Auto) 4.6 % Eosinophils (%) (Auto) 0.6 % Basophils (%) (Auto) 0.2 % Neutrophils # (Auto) 9.95 K/uL Lymphocytes # (Auto) 2.02 K/uL Monocytes # (Auto) 0.58 K/uL Eosinophils # (Auto) 0.07 K/uL Basophils # (Auto) 0.02 K/uL RDW Standard Deviation 36.2 fL RDW Coefficient of Variation 15.9 % Immature Granulocyte % (Auto) 0.3 % Immature Granulocyte # (Auto) 0.04 K/uL Polychromasia 1+ Basophilic Stippling 1+ Tear Drop Cells 1+ Ovalocytes 2+ Echinocytes 2+ Sodium Level 138 mmol/L Potassium Level 4.4 mmol/L Chloride Level 103 mmol/L Carbon Dioxide Level 31 mmol/L Anion Gap 4.0 mmol/L Blood Urea Nitrogen 16 mg/dl Creatinine 0.92 mg/dl Est Creatinine Clear Calc Drug Dose 163.1 ml/min Estimated GFR () 114.4 Estimated GFR (Non- 98.7 BUN/Creatinine Ratio 16.9 Random Glucose 97 mg/dl Calcium Level 9.4 mg/dl Magnesium Level 2.1 mg/dl Total Bilirubin 0.3 mg/dl Aspartate Amino Transf (AST/SGOT) 15 U/L Alanine Aminotransferase (ALT/SGPT) 49 U/L Alkaline Phosphatase 76 U/L Total Protein 7.1 gm/dl Albumin 3.0 gm/dl Globulin 4.1 gm/dl Albumin/Globulin Ratio 0.7 Assessment and Plan 46 year old man morbidly obese admitted to the hospital with intractable lower back pain. Assessment Intractable lower back pain failed outpatient conservative management Morbid obesity Essential Hypertension, uncontrolled left foot has large callus possibly infected on the basis of left toe History of bipolar disorder on lithium Plan Stop oxycodone 5 mg, start patient on Percocet 10 mg every 8 hours when necessary pain Stop long-acting oxycodone 20 mg every 12 hours as per recommendation of pain management Pain management consult appreciated, started gabapentin, baclofen Lidoderm patch Cake Stripper consult appreciated, status post bedside debridement, started Keflex , one culture growing staph aureus, will add Vanco for now Stop naproxen and start patient on Toradol 15 mg IV every 6 hours when necessary pain Continue patient on gentle IV fluid hydration Continue Pepcid Continue steroids Continue thallium and Risperdal blood pressure is extremely elevated but when he stood up systolic blood pressure dropped from 200 to 150 and heart rate went up from 80 to112, We'll start patient on low-dose beta awlter and repeat orthostatic vitals tomorrow Continue heparin subcutaneous for DVT prophylax Continued [facility] stay due to: inadequate oral pain control Discharge planning: other ([facility])
[2017-03-06] MEDS ORDERED: VANCOMYCIN CONSULT ACTIVE PRN (20:00)
[2017-03-06] MEDS ORDERED: VANCOMYCIN INJ 2,750 MG in SODIUM CHLORIDE 0.9% 500ML 500 ML IV ONE (20:15)
[2017-03-06] MEDS ORDERED: NURSING VERBAL MED ORDER ONE (20:45)
[2017-03-06 20:47] VITALS: BP 141/82; PULSE 82; O2SAT 94
[2017-03-06] MEDS: METOPROLOL SUCC 25MG EXT REL TAB PO SCH (21:17)
[2017-03-06] MEDS: POLYETHYLENE (MIRALAX) 17 GM PACK PO PRN (21:42)
[2017-03-07] MEDS ORDERED: AMOXICILLIN/CLAVULANATE TAB 875 MG TAB PO SCH
[2017-03-07 03:35] VITALS: BP 166/79; PULSE 74; TEMP 36.8; O2SAT 91
[2017-03-07] MEDS ORDERED: VANCOMYCIN INJ 2,500 MG in SODIUM CHLORIDE 0.9% 500ML 500 ML IV SCH (06:00)
[2017-03-07] MEDS: ECONAZOLE NITRATE 1% CRM 15 GM TUBE EXT SCH ×3 (06:03→21:51)
[2017-03-07] MEDS: HEPARIN SOD 5000 UNIT/0.5 ML CARP SQ SCH ×3 (06:03→23:17)
[2017-03-07 06:59] LABS: BASO % 0.2 %; BASO ABS # 0.03 K/uL (0-0.2); EOS % 0.7 %; EOS ABS # 0.09 K/uL (0-0.5); HEMATOCRIT 37.2 % (42-52); HEMOGLOBIN 11.4 g/dL (14.0-18.0); IG# 0.04 K/uL (0.00-0.02); LYMPH % 15.3 %; LYMPH ABS # 1.97 K/uL (1.2-3.4); MEAN CELL VOLUME 63.5 fL (80-100); MEAN CORPUSCULAR HEMOGLOBIN 19.5 pg (25-34); MEAN CORPUSCULAR HGB CONC 30.6 g/dl (32-36); MEAN PLATELET VOLUME 10.2 fL (7.4-10.4); MONO % 6.9 %; MONO ABS # 0.89 K/uL (0.11-0.59); NEUT % 76.6 %; NEUT ABS # 9.82 K/uL (1.4-6.5); PLATELET COUNT 322 K/uL (130-400); RED CELL DISTRIBUTION WIDTH SD 36.3 fL (36.4-46.3); WHITE BLOOD COUNT 12.84 K/uL (4.8-10.8)
[2017-03-07 07:09] VITALS: BP 160/82; PULSE 61; TEMP 36.8; O2SAT 95
[2017-03-07 07:29] LABS: ALBUMIN 2.8 gm/dl (3.4-5.0); CALCIUM 9.1 mg/dl (8.5-10.1); CREATININE 0.9 mg/dl (0.60-1.40); POTASSIUM 4.4 mmol/L (3.5-5.1)
[2017-03-07 07:32] LABS: TOTAL PROTEIN 6.8 gm/dl (6.4-8.2)
[2017-03-07] MEDS: POLYETHYLENE (MIRALAX) 17 GM PACK PO PRN ×3 (07:48→22:32)
[2017-03-07] MEDS: LACTOBACILLUS ACIDOPHILUS 1 GM PACK PO SCH ×3 (09:05→17:14)
[2017-03-07] MEDS: HYDROCHLOROTHIAZIDE 25 MG TAB PO SCH (09:06)
[2017-03-07] MEDS: LITHIUM CARBONATE 450 MG TABCR PO SCH ×2 (09:06→21:48)
[2017-03-07] MEDS: CEPHALEXIN MONOHYDRATE 500 MG CAP PO SCH (09:07)
[2017-03-07] MEDS: GABAPENTIN 300 MG CAP PO SCH ×3 (09:08→21:48)
[2017-03-07] MEDS: FAMOTIDINE 20 MG TAB PO SCH (09:08)
[2017-03-07] MEDS: RISPERIDONE 3 MG TAB PO SCH ×2 (09:08→21:48)
--- NOTE | 2017-03-07 09:08 | Pain Management Progress Note ---
Pain Management Progress Note Date of Service Mar 07, 2017. Subjective Patient with complaint of axial lumbosacral pain with referred pain towards the right hip. Initiated on Lidoderm patch yesterday, which he reports has been without benefit. He has not utilize oral baclofen which was initiated yesterday. He is tolerating gabapentin initiated at 300 mg 3 times a day yesterday, again without noticeable change in pain control at this time. Patient has not utilized hydrocodone. He reports his pain as ranging between a 0-8/10 over the past 24 hours. His pain is a 0/10 in the supine position, aggravated with positional change. He has not been out of bed this morning and unable to assess his current level of pain. He continues to deny radicular component to his pain, weaknesses, footdrop or falling. He is reporting constipation but denies abdominal pain or fullness. Patient has no further constitutional complaints at this time. Plan of care discussed with Dr. Durand. Objective Vital Signs: Last Vital Signs Documentation Date Time Temp Pulse Resp B/P (MAP) Pulse Ox O2 Delivery O2 Flow Rate FiO2 03/07/17 07:40 Room Air 03/07/17 07:09 36.8 61 17 160/82 (108) 95 Physical Exam: Gen.: Patient lying supine upon entering the room in no acute distress reporting his pain is a 0/10. Patient is obese and physically deconditioned. Affect is flat. Patient awake, alert and oriented to time, person and place. Extremities: Multiple wounds present on the feet bilaterally. Dressings were being replaced by nurse at the time at today's visit. Neurologic: Cranial nerves grossly intact. Ambulatory function not witnessed. Laboratory Laboratory Findings 03/07/17 06:01 Red Blood Count 5.86, Mean Corpuscular Volume 63.5 L, Mean Corpuscular Hemoglobin 19.5 L, Mean Corpuscular Hemoglobin Concent 30.6 L, Mean Platelet Volume 10.2, Neutrophils (%) (Auto) 76.6, Lymphocytes (%) (Auto) 15.3, Monocytes (%) (Auto) 6.9, Eosinophils (%) (Auto) 0.7, Basophils (%) (Auto) 0.2, Neutrophils # (Auto) 9.82 H, Lymphocytes # (Auto) 1.97, Monocytes # (Auto) 0.89 H, Eosinophils # (Auto) 0.09, Basophils # (Auto) 0.03 Assessment 1. Lumbago 2. Right-sided inflammatory sacroiliitis 3. Bipolar disorder with history of delusional thoughts Recommendations 1. Patient was encouraged to utilize baclofen on a when necessary basis for breakthrough spasm to assess efficacy 2. Continue use of Lidoderm patch. We discussed appropriate placement and he verbalizes understanding. 3. Maintain gabapentin at 300 mg 3 times a day 4. Patient remains a non-candidate for interventional procedures due to ongoing foot ulcerations 5. Continue with Midkiff 5/325 one tablet by mouth every 4 hours when necessary for breakthrough pain 6. Pain service will sign off on the patient at this time. Please contact us during this hospitalization for reevaluation as needed.
[2017-03-07] MEDS: METOPROLOL SUCC 25MG EXT REL TAB PO SCH (09:09)
[2017-03-07] MEDS: CARBAMAZEPINE 200 MG TAB PO SCH ×2 (09:09→21:48)
[2017-03-07] MEDS: LIDODERM (LIDOCAINE) PATCH 5% TD SCH (09:10)
[2017-03-07] MEDS: METHYLPREDNISOLONE IV 40 MG in SYRINGE 0 ML IV SCH (10:05)
[2017-03-07] MEDS ORDERED: AMOXICIL/CLAVU 875MG HOME PACK PO ONE (11:00)
[2017-03-07] MEDS: LORAZEPAM 0.5 MG TAB PO SCH ×2 (11:03→21:47)
[2017-03-07 15:50] VITALS: BP 123/83; PULSE 69; TEMP 36.6; O2SAT 92
[2017-03-07] MEDS: SODIUM CHLORIDE 0.9% 1000ML 1,000 ML IV SCH (16:07)
[2017-03-07] MEDS: LITHIUM CARBONATE 300 MG PO SCH (16:07)
--- NOTE | 2017-03-07 16:26 | Progress Note ---
Subjective Date of Service: Mar 07, 2017. Subjective Pt evaluation today including: conversation w/ patient, physical exam, chart review, lab review, review of inpatient medication list Pain: pain is much better controlled now Voiding: no voiding problems, no incontinence Problem List Medical Problems: (1) Ambulatory dysfunction Status: Acute (2) Infected blister of foot or toe, left Status: Acute (3) Intractable back pain Status: Acute (4) Low back pain with right-sided sciatica Status: Acute (5) Lumbosacral radiculopathy Status: Acute (6) Right-sided low back pain with sciatica Status: Acute (7) Sciatica, right side Status: Acute Review of Systems Constitutional: No see HPI, No fever, No chills, No sweats, No weight loss, No weakness, No fatigue, No problem reported Eyes: No see HPI, No worsening of vision, No eye pain, No redness, No discharge , No diplopia, No problem reported ENT: No see HPI, No hearing loss, No unusual epistaxis, No nasal symptoms, No sore throat, No tinnitus, No dental problems, No trouble swallowing, No problem reported Respiratory: No see HPI, No cough, No sputum, No wheezing, No shortness of breath, No dyspnea on exertion, No dyspnea at rest, No hemoptysis, No problem reported Cardiac: No see HPI, No chest pain, No orthopnea, No PND, No edema, No claudication, No palpitations, No problem reported Abdomen: No see HPI, No pain, No nausea, No vomiting, No diarrhea, No constipation, No GI bleeding, No problem reported Musculoskeletal: + joint pain, + muscle pain, + problem reported (back pain) Male : No see HPI, No dysuria, No urinary frequency, No incontinence, No nocturia more than once/night, No slowing stream, No hematuria, No sexual dysfunction, No problem reported Neurologic: No see HPI, No memory loss, No paralysis, No weakness, No numbness/ tingling, No vertigo, No balance problems, No problem reported Psychiatric: No see HPI, No depression symptoms, No anhedonism, No anxiety, No insomnia, No substance abuse, No problem reported Heme: No see HPI, No abnormal bleeding/bruising, No clotting problems, No swollen lymph nodes, No night sweats, No problem reported Endo: No see HPI, No fatigue, No excessive thirst, No excessive urination, No problem reported Skin: No see HPI, No rash, No itch, No new/changing skin lesions, No color change, No bleeding, No problem reported Objective Vital Signs Date Time Temp Pulse Resp B/P (MAP) Pulse Ox O2 Delivery O2 Flow Rate FiO2 03/07/17 07:40 Room Air 03/07/17 07:09 36.8 61 17 160/82 (108) 95 Room Air 03/07/17 03:35 36.8 74 18 166/79 (108) 91 Room Air 03/06/17 20:47 82 16 141/82 (101) 94 Room Air 03/06/17 20:00 Room Air Physical Exam General Appearance: WD/WN, no apparent distress Eyes: normal inspection, EOMI ENT: normal ENT inspection, hearing grossly normal Neck: supple Respiratory/Chest: chest non-tender, lungs clear, normal breath sounds, no respiratory distress, no accessory muscle use Cardiovascular: regular rate, rhythm, no edema, no gallop, no JVD, no murmur Abdomen: normal bowel sounds, non tender, soft, no organomegaly, no pulsatile mass Extremities: normal range of motion, non-tender, normal inspection, no pedal edema, no calf tenderness, + pertinent finding (left foot is wraped , back pain and decrease rom) Neurologic/Psychiatric: 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 therapy aide II-XII nml as tested, no motor/sensory deficits, alert, normal mood/affect, oriented x 3 Skin: normal color, warm/dry, no rash Laboratory Results Last 24 Hours Test 03/07/17 06:01 White Blood Count 12.84 K/uL Red Blood Count 5.86 M/uL Hemoglobin 11.4 g/dL Hematocrit 37.2 % Mean Corpuscular Volume 63.5 fL Mean Corpuscular Hemoglobin 19.5 pg Mean Corpuscular Hemoglobin Concent 30.6 g/dl Platelet Count 322 K/uL Mean Platelet Volume 10.2 fL Neutrophils (%) (Auto) 76.6 % Lymphocytes (%) (Auto) 15.3 % Monocytes (%) (Auto) 6.9 % Eosinophils (%) (Auto) 0.7 % Basophils (%) (Auto) 0.2 % Neutrophils # (Auto) 9.82 K/uL Lymphocytes # (Auto) 1.97 K/uL Monocytes # (Auto) 0.89 K/uL Eosinophils # (Auto) 0.09 K/uL Basophils # (Auto) 0.03 K/uL RDW Standard Deviation 36.3 fL RDW Coefficient of Variation 16.0 % Immature Granulocyte % (Auto) 0.3 % Immature Granulocyte # (Auto) 0.04 K/uL Large Platelets 1+ Hypochromasia PRESENT Microcytosis PRESENT Ovalocytes 1+ Sodium Level 139 mmol/L Potassium Level 4.4 mmol/L Chloride Level 105 mmol/L Carbon Dioxide Level 29 mmol/L Anion Gap 5.0 mmol/L Blood Urea Nitrogen 19 mg/dl Creatinine 0.90 mg/dl Est Creatinine Clear Calc Drug Dose 166.7 ml/min Estimated GFR () 117.5 Estimated GFR (Non- 101.4 BUN/Creatinine Ratio 21.2 Random Glucose 97 mg/dl Calcium Level 9.1 mg/dl Total Bilirubin 0.3 mg/dl Aspartate Amino Transf (AST/SGOT) 16 U/L Alanine Aminotransferase (ALT/SGPT) 47 U/L Alkaline Phosphatase 75 U/L Total Protein 6.8 gm/dl Albumin 2.8 gm/dl Globulin 4.0 gm/dl Albumin/Globulin Ratio 0.7 Assessment and Plan 46 year old man morbidly obese admitted to the hospital with intractable lower back pain. Assessment Intractable lower back pain failed outpatient conservative management Morbid obesity Essential Hypertension, uncontrolled left foot has large callus possibly infected on the basis of left toe History of bipolar disorder on lithium Plan Stop oxycodone 5 mg, decrease Percocet 10 mg every 8 hours to 5mg every 12 hours only when necessary for pain, will stop it tomorrow Stop long-acting oxycodone 20 mg every 12 hours as per recommendation of pain management Pain management consult appreciated, started gabapentin, baclofen Lidoderm patch Aspnet Developer consult appreciated, status post bedside debridement,culture growing staph aureus, will switch Abx to unasyn while inpatient then augmentin prior to discharge Stop naproxen and start patient on Toradol 15 mg IV every 6 hours when necessary pain Continue patient on gentle IV fluid hydration Continue Pepcid Continue steroids Continue thallium and Risperdal yesterday 03/06 blood pressure was extremely elevated but when he stood up systolic blood pressure dropped from 200 to 150 and heart rate went up from 80 to112, We'll start patient on low-dose beta walter and repeat orthostatic vitals again tomorrow blood pressure improved after starting hctz and toprol xl Continue heparin subcutaneous for DVT prophylax Continued [facility] stay due to: inadequate oral pain control Discharge planning: other ([facility])
[2017-03-07] MEDS ORDERED: HYDROCODONE/ACETAMIN 5/325MG TAB PO PRN (16:30)
[2017-03-07] MEDS: AMPICILLIN/SULBACTAM SOD INJ 3,000 MG in SODIUM CHLORIDE 0.9% 100ML 100 ML IV SCH ×2 (17:12→22:32)
[2017-03-07] MEDS ORDERED: VANCOMYCIN TROUGH ONE (21:30)
[2017-03-07] MEDS: METHYLPREDNISOLONE IV 20 MG in SYRINGE 0 ML IV SCH (21:50)
[2017-03-07 22:50] VITALS: BP 123/81; PULSE 69; TEMP 36.7; O2SAT 93
[2017-03-08] MEDS: AMPICILLIN/SULBACTAM SOD INJ 3,000 MG in SODIUM CHLORIDE 0.9% 100ML 100 ML IV SCH ×3 (04:57→15:51)
[2017-03-08] MEDS: ECONAZOLE NITRATE 1% CRM 15 GM TUBE EXT SCH ×3 (06:28→21:44)
[2017-03-08] MEDS: POLYETHYLENE (MIRALAX) 17 GM PACK PO PRN ×2 (06:29→16:21)
[2017-03-08] MEDS: HEPARIN SOD 5000 UNIT/0.5 ML CARP SQ SCH ×3 (06:29→21:44)
[2017-03-08 07:20] VITALS: BP 164/88; PULSE 65; TEMP 36.5
[2017-03-08 07:51] LABS: BASO % 0.3 %; BASO ABS # 0.04 K/uL (0-0.2); EOS % 1.9 %; EOS ABS # 0.27 K/uL (0-0.5); HEMATOCRIT 37.6 % (42-52); HEMOGLOBIN 11.3 g/dL (14.0-18.0); IG# 0.08 K/uL (0.00-0.02); LYMPH ABS # 2.42 K/uL (1.2-3.4); MEAN CELL VOLUME 64.2 fL (80-100); MEAN CORPUSCULAR HEMOGLOBIN 19.3 pg (25-34); MEAN CORPUSCULAR HGB CONC 30.1 g/dl (32-36); MEAN PLATELET VOLUME 9.3 fL (7.4-10.4); MONO ABS # 0.86 K/uL (0.11-0.59); NEUT % 74.2 %; PLATELET COUNT 222 K/uL (130-400); RED CELL DISTRIBUTION WIDTH CV 16.2 % (11.5-14.5); RED CELL DISTRIBUTION WIDTH SD 37.1 fL (36.4-46.3); WHITE BLOOD COUNT 14.27 K/uL (4.8-10.8)
[2017-03-08 08:24] LABS: ALBUMIN 2.8 gm/dl (3.4-5.0); CALCIUM 9.6 mg/dl (8.5-10.1); CREATININE 1.05 mg/dl (0.60-1.40); POTASSIUM 4.1 mmol/L (3.5-5.1)
[2017-03-08 08:27] LABS: TOTAL PROTEIN 6.8 gm/dl (6.4-8.2)
[2017-03-08] MEDS: GABAPENTIN 300 MG CAP PO SCH ×3 (09:47→20:38)
[2017-03-08] MEDS: CARBAMAZEPINE 200 MG TAB PO SCH ×2 (09:48→20:38)
[2017-03-08] MEDS: METOPROLOL SUCC 25MG EXT REL TAB PO SCH (09:48)
[2017-03-08] MEDS: METHYLPREDNISOLONE IV 20 MG in SYRINGE 0 ML IV SCH ×2 (09:49→21:43)
[2017-03-08] MEDS: RISPERIDONE 3 MG TAB PO SCH ×2 (09:49→20:39)
[2017-03-08] MEDS: LACTOBACILLUS ACIDOPHILUS 1 GM PACK PO SCH ×3 (09:49→18:22)
[2017-03-08] MEDS: LITHIUM CARBONATE 450 MG TABCR PO SCH ×2 (09:50→20:39)
[2017-03-08] MEDS: FAMOTIDINE 20 MG TAB PO SCH (09:50)
[2017-03-08] MEDS: LIDODERM (LIDOCAINE) PATCH 5% TD SCH (09:51)
[2017-03-08] MEDS: HYDROCHLOROTHIAZIDE 25 MG TAB PO SCH (09:51)
[2017-03-08] MEDS: SODIUM CHLORIDE 0.9% 1000ML 1,000 ML IV SCH (11:38)
[2017-03-08] MEDS: LORAZEPAM 0.5 MG TAB PO SCH ×2 (11:38→20:37)
[2017-03-08 13:57] VITALS: BP 107/68
[2017-03-08 14:13] VITALS: BP 121/81; PULSE 90; O2SAT 93
--- NOTE | 2017-03-08 14:49 | DIAGNOSTIC IMAGING REPORT ---
CHEST ONE VIEW PORTABLE CLINICAL HISTORY: Shortness of breath. Hypoxia. COMPARISON STUDY: Chest radiograph February 27, 2012. FINDINGS: Lung volumes are normal. There is no pneumothorax or pleural effusion. There is moderate cardiomegaly. There is mild lower lung reticulonodular interstitial thickening. There is no lobar consolidation. IMPRESSION: 1. Mild lower lung reticulonodular interstitial thickening which favors an infectious process. Pulmonary edema could appear similar although is considered less likely. 2. Moderate cardiomegaly. Electronically signed by: Booker Jay M.D. 03/08/2017 2:48 PM Dictated Date/Time: 03/08/2017 2:46 PM
[2017-03-08 15:30] VITALS: BP 135/84; PULSE 101; TEMP 36.7; O2SAT 96
[2017-03-08] MEDS: LITHIUM CARBONATE 300 MG PO SCH (15:49)
--- NOTE | 2017-03-08 16:46 | Progress Note ---
Subjective Date of Service: Mar 08, 2017. Subjective Pt evaluation today including: conversation w/ patient, physical exam, chart review, lab review, review of studies, review of inpatient medication list Pain: status complains of pain after his hip PO Intake: adequate Voiding: no voiding problems Unable to walk on his leg, complain of significant pain of the right hip might be referred from the back Previous imaging of the hip looks good Problem List Medical Problems: (1) Ambulatory dysfunction Status: Acute (2) Infected blister of foot or toe, left Status: Acute (3) Intractable back pain Status: Acute (4) Low back pain with right-sided sciatica Status: Acute (5) Lumbosacral radiculopathy Status: Acute (6) Right-sided low back pain with sciatica Status: Acute (7) Sciatica, right side Status: Acute Review of Systems Constitutional: No see HPI, No fever, No chills, No sweats, No weight loss, No weakness, No fatigue, No problem reported Eyes: No see HPI, No worsening of vision, No eye pain, No redness, No discharge , No diplopia, No problem reported ENT: No see HPI, No hearing loss, No unusual epistaxis, No nasal symptoms, No sore throat, No tinnitus, No dental problems, No trouble swallowing, No problem reported Respiratory: No see HPI, No cough, No sputum, No wheezing, No shortness of breath, No dyspnea on exertion, No dyspnea at rest, No hemoptysis, No problem reported Cardiac: No see HPI, No chest pain, No orthopnea, No PND, No edema, No claudication, No palpitations, No problem reported Abdomen: No see HPI, No pain, No nausea, No vomiting, No diarrhea, No constipation, No GI bleeding, No problem reported Musculoskeletal: + joint pain, + muscle pain, + problem reported (back pain and right hip pain) Male : No see HPI, No dysuria, No urinary frequency, No incontinence, No nocturia more than once/night, No slowing stream, No hematuria, No sexual dysfunction, No problem reported Neurologic: No see HPI, No memory loss, No paralysis, No weakness, No numbness/ tingling, No vertigo, No balance problems, No problem reported Psychiatric: No see HPI, No depression symptoms, No anhedonism, No anxiety, No insomnia, No substance abuse, No problem reported Endo: No see HPI, No fatigue, No excessive thirst, No excessive urination, No problem reported Skin: No see HPI, No rash, No itch, No new/changing skin lesions, No color change, No bleeding, No problem reported Medications Current Inpatient Medications Medications (Trade) Dose Ordered Sig/Fabby Route Start Time Stop Time Status Last Admin Dose Admin Heparin Sodium (Porcine) (Heparin Sq 5000 Unit/0.5ml) 5,000 unit Q8H SQ 03/04/17 06:00 04/03/17 05:59 03/08/17 13:40 5,000 UNIT Acetaminophen (Tylenol Tab) 650 mg Q4H PRN PO 03/03/17 17:45 04/02/17 17:44 Carbamazepine (Tegretol Tab) 400 mg BID PO 03/03/17 21:00 04/02/17 20:59 03/08/17 09:48 400 MG [place] Carbonate (Eskalith Cr Tab) 450 mg BID PO 03/03/17 21:00 04/02/17 20:59 03/08/17 09:50 450 MG Risperidone (Risperdal Tab) 3 mg BID PO 03/03/17 21:00 04/02/17 20:59 03/08/17 09:49 3 MG Hydrochlorothiazide (Hydrochlorothiazide Tab) 12.5 mg DAILY PO 03/04/17 09:00 04/03/17 08:59 03/08/17 09:51 12.5 MG [place] Carbonate ([place] Carbonate Tab) 300 mg DAILY@1600 PO 03/03/17 21:00 04/02/17 20:59 03/08/17 15:49 300 MG Miscellaneous (Iv Fluids Completed) 1 ea PRN PRN N/A 03/03/17 21:00 03/03/18 20:59 Lorazepam (Ativan Tab) 0.5 mg BID@1100,2100 PO 03/05/17 11:00 04/02/17 20:59 03/08/17 11:38 0.5 MG Ketorolac Tromethamine (Toradol Inj) 15 mg Q6H PRN IV 03/05/17 17:30 03/10/17 17:29 Sodium Chloride 1,000 ml @ 50 mls/hr Q20H IV 03/05/17 17:30 04/04/17 17:29 03/08/17 11:38 50 MLS/HR Econazole Nitrate (Econazole Nitrate 1% Crm) 1 appln Q8 EXT 03/05/17 19:03 04/04/17 19:02 03/08/17 13:33 1 APPLN Lidocaine (Lidoderm Patch 5%) 1 patch QAM TD 03/06/17 09:00 04/05/17 08:59 03/08/17 09:51 1 PATCH Miscellaneous (Remove Lidoderm Patch) 1 ea DAILY@21 N/A 03/06/17 21:00 04/05/17 20:59 03/07/17 22:00 1 EA Baclofen (Lioresal Tab) 10 mg Q8 PRN PO 03/06/17 09:00 04/05/17 08:59 Gabapentin (Neurontin Cap) 300 mg TID PO 03/06/17 14:00 04/05/17 13:59 03/08/17 13:36 300 MG Famotidine (Pepcid Tab) 20 mg DAILY PO 03/07/17 09:00 04/06/17 08:59 03/08/17 09:50 20 MG Lactobacillus Acidophilus (Lactinex Granules Pack) 1 gm TIDM PO 03/07/17 08:30 04/06/17 08:29 03/08/17 13:33 1 GM Metoprolol Succinate (Toprol Xl Tab) 25 mg QAM PO 03/06/17 19:50 04/05/17 19:49 03/08/17 09:48 25 MG Polyethylene (Miralax Powder Packet) 17 gm TID PRN PO 03/06/17 21:45 04/05/17 21:44 03/08/17 16:21 17 GM Ampicillin Sodium/ Sulbactam Sodium 3000 mg/Sodium Chloride 108 ml @ 200 mls/hr Q6H IV 03/07/17 16:30 03/17/17 16:29 03/08/17 15:51 200 MLS/HR Methylprednisolone Sodium Succinate 20 mg/Syringe 0.32 ml @ 1.5 mls/min Q12H IV 03/07/17 22:00 04/02/17 21:59 03/08/17 09:49 1.5 MLS/MIN Acetaminophen/ Hydrocodone Bitart (Dane 5/325 Tab) 1 tab Q12H PRN PO 03/07/17 16:30 03/20/17 08:59 Objective Vital Signs Date Time Temp Pulse Resp B/P (MAP) Pulse Ox O2 Delivery O2 Flow Rate FiO2 03/08/17 15:30 36.7 101 18 135/84 (101) 96 Nasal Cannula 4.0 03/08/17 14:13 90 121/81 (94) 93 Nasal Cannula 4.0 03/08/17 13:57 107/68 (81) 03/08/17 07:50 Room Air 03/08/17 07:20 36.5 65 19 164/88 (113) Room Air 03/07/17 23:15 Room Air 03/07/17 22:50 36.7 69 18 123/81 (95) 93 Room Air Physical Exam General Appearance: no apparent distress, + obese Eyes: normal inspection, EOMI ENT: normal ENT inspection, hearing grossly normal Neck: supple Respiratory/Chest: chest non-tender, lungs clear, normal breath sounds, no respiratory distress, no accessory muscle use Cardiovascular: regular rate, rhythm, no edema, no gallop, no JVD, no murmur Abdomen: normal bowel sounds, non tender, soft, no organomegaly, no pulsatile mass Extremities: normal range of motion, non-tender, + pertinent finding (left lower foot ulcer wrapped ) Neurologic/Psychiatric: 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-XII 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 as tested, no motor/sensory deficits, alert, normal mood/affect, oriented x 3 Skin: normal color, warm/dry, no rash Laboratory Results Last 24 Hours Test 03/08/17 07:05 White Blood Count 14.27 K/uL Red Blood Count 5.86 M/uL Hemoglobin 11.3 g/dL Hematocrit 37.6 % Mean Corpuscular Volume 64.2 fL Mean Corpuscular Hemoglobin 19.3 pg Mean Corpuscular Hemoglobin Concent 30.1 g/dl Platelet Count 222 K/uL Mean Platelet Volume 9.3 fL Neutrophils (%) (Auto) 74.2 % Lymphocytes (%) (Auto) 17.0 % Monocytes (%) (Auto) 6.0 % Eosinophils (%) (Auto) 1.9 % Basophils (%) (Auto) 0.3 % Neutrophils # (Auto) 10.60 K/uL Lymphocytes # (Auto) 2.42 K/uL Monocytes # (Auto) 0.86 K/uL Eosinophils # (Auto) 0.27 K/uL Basophils # (Auto) 0.04 K/uL RDW Standard Deviation 37.1 fL RDW Coefficient of Variation 16.2 % Immature Granulocyte % (Auto) 0.6 % Immature Granulocyte # (Auto) 0.08 K/uL Hypochromasia PRESENT Microcytosis PRESENT Tear Drop Cells 1+ Ovalocytes 1+ Sodium Level 139 mmol/L Potassium Level 4.1 mmol/L Chloride Level 103 mmol/L Carbon Dioxide Level 31 mmol/L Anion Gap 5.0 mmol/L Blood Urea Nitrogen 19 mg/dl Creatinine 1.05 mg/dl Est Creatinine Clear Calc Drug Dose 142.9 ml/min Estimated GFR () 97.5 Estimated GFR (Non- 84.1 BUN/Creatinine Ratio 17.8 Random Glucose 121 mg/dl Calcium Level 9.6 mg/dl Magnesium Level 2.1 mg/dl Total Bilirubin 0.2 mg/dl Aspartate Amino Transf (AST/SGOT) 24 U/L Alanine Aminotransferase (ALT/SGPT) 59 U/L Alkaline Phosphatase 73 U/L Total Protein 6.8 gm/dl Albumin 2.8 gm/dl Globulin 4.0 gm/dl Albumin/Globulin Ratio 0.7 Assessment and Plan 46 year old man morbidly obese admitted to the hospital with intractable lower back pain. Assessment Intractable lower back pain failed outpatient conservative management Morbid obesity Essential Hypertension, uncontrolled left foot has large callus possibly infected on the basis of left toe History of bipolar disorder on lithium Acute kidney injury with bump in creatinine from 0.7 to 1.02 Plan Stop oxycodone and long-acting oxycodone as per recommendation of pain management Unfortunately we'll have to stop his tramadol as well due to the deterioration in the renal function pain management started gabapentin, baclofen Lidoderm [facility] Block Operator consult appreciated, status post bedside debridement,culture growing staph aureus, will switch Abx to unasyn while inpatient then augmentin prior to discharge Continue patient on gentle IV fluid hydration Continue Pepcid Continue steroids Continue lithium and Risperdal on 03/06 blood pressure was extremely elevated but when he stood up systolic blood pressure dropped from 200 to 150 and heart rate went up from 80 to112, We'll start patient on low-dose beta walter and repeat orthostatic vitals again daily blood pressure improved after starting hctz and toprol xl Continue heparin subcutaneous for DVT prophylax Continued [facility] stay due to: inadequate oral pain control Discharge planning: other ([facility])
[2017-03-08] MEDS ORDERED: FUROSEMIDE INJ 20 MG in SYRINGE 0 ML IV STA (18:01)
[2017-03-08] MEDS ORDERED: LEVOFLOXACIN / D5W 500 MG in PREMIXED IN D5W 100 ML IV SCH (19:00)
[2017-03-08] MEDS ORDERED: CEFTRIAXONE SOD INJ 1 GM in DEXTROSE 5% ADD-VANTAGE 50ML 50 ML IV SCH (19:00)
[2017-03-08 21:46] VITALS: PULSE 92; O2SAT 96
[2017-03-08 23:27] VITALS: BP 104/74; PULSE 81; TEMP 36.7; O2SAT 92
[2017-03-09] MEDS: HEPARIN SOD 5000 UNIT/0.5 ML CARP SQ SCH (05:26)
[2017-03-09] MEDS: ECONAZOLE NITRATE 1% CRM 15 GM TUBE EXT SCH (05:27)
[2017-03-09 07:03] LABS: BASO % 0.2 %; BASO ABS # 0.04 K/uL (0-0.2); EOS % 1.4 %; EOS ABS # 0.23 K/uL (0-0.5); HEMATOCRIT 36.3 % (42-52); HEMOGLOBIN 11.1 g/dL (14.0-18.0); IG# 0.07 K/uL (0.00-0.02); LYMPH % 16.9 %; LYMPH ABS # 2.75 K/uL (1.2-3.4); MEAN CELL VOLUME 63.4 fL (80-100); MEAN CORPUSCULAR HEMOGLOBIN 19.4 pg (25-34); MEAN CORPUSCULAR HGB CONC 30.6 g/dl (32-36); MEAN PLATELET VOLUME 9.7 fL (7.4-10.4); MONO % 7.1 %; MONO ABS # 1.16 K/uL (0.11-0.59); NEUT ABS # 12.06 K/uL (1.4-6.5); PLATELET COUNT 199 K/uL (130-400); RED CELL DISTRIBUTION WIDTH CV 16.3 % (11.5-14.5); RED CELL DISTRIBUTION WIDTH SD 36.7 fL (36.4-46.3); WHITE BLOOD COUNT 16.31 K/uL (4.8-10.8)
[2017-03-09 07:26] VITALS: BP 123/76; PULSE 80; TEMP 36.8; O2SAT 93
[2017-03-09 07:34] LABS: ALBUMIN 2.8 gm/dl (3.4-5.0); CREATININE 1.03 mg/dl (0.60-1.40); POTASSIUM 4.1 mmol/L (3.5-5.1)
[2017-03-09 07:36] LABS: TOTAL PROTEIN 6.8 gm/dl (6.4-8.2)
[2017-03-09] MEDS: POLYETHYLENE (MIRALAX) 17 GM PACK PO PRN (08:08)
[2017-03-09] MEDS ORDERED: LACTOBACILLUS ACIDOPHILUS 1 GM PACK PO SCH (08:30)
[2017-03-09] MEDS: LACTOBACILLUS ACIDOPHILUS 1 GM PACK PO SCH (08:59)
[2017-03-09] MEDS: LITHIUM CARBONATE 450 MG TABCR PO SCH (09:00)
[2017-03-09] MEDS: RISPERIDONE 3 MG TAB PO SCH (09:01)
[2017-03-09] MEDS: FAMOTIDINE 20 MG TAB PO SCH (09:01)
[2017-03-09] MEDS: GABAPENTIN 300 MG CAP PO SCH (09:01)
[2017-03-09] MEDS: CARBAMAZEPINE 200 MG TAB PO SCH (09:03)
[2017-03-09 09:05] VITALS: BP 135/78; PULSE 90
[2017-03-09] MEDS: METOPROLOL SUCC 25MG EXT REL TAB PO SCH (09:06)
[2017-03-09] MEDS: HYDROCHLOROTHIAZIDE 25 MG TAB PO SCH (09:06)
[2017-03-09] MEDS: LIDODERM (LIDOCAINE) PATCH 5% TD SCH (09:08)
[2017-03-09] MEDS: METHYLPREDNISOLONE IV 20 MG in SYRINGE 0 ML IV SCH (10:08)
[2017-03-09] MEDS: LORAZEPAM 0.5 MG TAB PO SCH (11:15)
[2017-03-09 12:45] VITALS: BP 182/102; PULSE 72; TEMP 37; O2SAT 97
[2017-03-09 13:10] VITALS: BP 146/87; PULSE 72; TEMP 37; O2SAT 97
[2017-03-09] MEDS ORDERED: RAPID SEQUENCE INDUCTION BAG ONE (13:13)
[2017-03-09 13:31] LABS: ALBUMIN 3.4 gm/dl (3.4-5.0); CALCIUM 9.8 mg/dl (8.5-10.1); CREATININE 1.16 mg/dl (0.60-1.40); POTASSIUM 3.6 mmol/L (3.5-5.1)
[2017-03-09 13:35] LABS: TOTAL PROTEIN 7.9 gm/dl (6.4-8.2)
[2017-03-09] MEDS ORDERED: DOPamine 400MG / 250ML D5W ONE (14:08)
[2017-03-09] MEDS ORDERED: SODIUM CHLORIDE 0.9% 10ML FLUSH IV ONE (14:25)
[2017-03-09] MEDS ORDERED: SODIUM CHLORIDE 0.45% INJ 1000 ML BAG IV ONE (14:25)
[2017-03-09] MEDS ORDERED: ATROPINE SULFATE 0.1 MG/ML 10 ML SYR IV ONE (14:25)
[2017-03-09] MEDS ORDERED: SODIUM BICARB 8.4% INJ 50 MEQ/50 ML SYR IV ONE (14:25)
[2017-03-09] MEDS ORDERED: AMIODARONE HCL INJ 50 MG/ML 3 ML VIAL IV ONE (14:25)
[2017-03-09] MEDS ORDERED: ETOMIDATE 2 MG/ML 20 ML VIAL IV ONE (14:25)
[2017-03-09] MEDS ORDERED: ADENOSINE IV SOLN 3 MG/ML 2 ML VIAL IV ONE (14:25)
[2017-03-09] MEDS ORDERED: SUCCINYLCHOLINE CHLORIDE 20 MG/ML 10 ML VIAL IV ONE (14:25)
--- NOTE | 2017-03-09 14:50 | Cardiology Follow-Up ---
Cardiology Follow-Up Date of Service Mar 09, 2017. Cardiology Follow-Up Dr. Kohler page me and asked me to report to the bedside regarding code blue situation. When I reported to the bedside, ACLS protocol was being performed with the critical care team, led by Dr. Jasso. At that time, chest compressions were being performed and medications were being given under the direction of Dr. Jasso. He had placed transvenous pacemaker without capture. When chest compressions were held to re-evaluate, the rhythm was asystole each time that I was present at the bedside. Please see code blue notes for full details of the treatment. A consultation was not performed due to the fact that he was undergoing ACLS protocol and .
--- NOTE | 2017-03-09 15:06 | Critical Care Consultation ---
Critical Care Consultation Date of Consultation: Mar 09, 2017. Attending Physician: Sanaz Cabello MD Reason for Consultation: Obtundation and a coma. History of Present Illness This is 46-year-old gentleman with a history of morbid obesity, bipolar disorder , diabetes, history of suicidal ideation, presented in the past to the hospital with psych history, on this admission the patient presented to the hospital with increasing shortness of breath and back pain. The patient initially was treated with steroids and antibiotics for possible diagnosis of bronchitis as well. The patient apparently went to the commode and after that he become unconscious. The patient was brought back again to the bed and was not arousable. CODE BLUE was called and the patient was attempted to be intubated at that time. The patient was in Trendelenburg when I arrived. CPR was done for almost a minute prior to this event. The patient brought to the ICU 100% nonrebreather, he is still comatose but the breathing with loud snoring. The patient appeared to be pickwickian. Shortly after, the patient had an ABG which revealed PO2 of 94 on 100% oxygen. And has to be intubated. The patient was intubated for rapid sequence intubation. Using etomidate and succinylcholine. The patient was intubated with #8 ET tube and confirmed with the end tidal CO2. The patient went into a quick rhythm of complete heart block and remains comatose throughout. A code was called at that time. The patient was given multiple doses of epinephrine and atropine and he deniz rhythm with narrow complex tachycardia but no blood pressure requiring cardioversion which was done with under July only. The patient came back again sinus rhythm with wide complex rhythm. The patient went back again to complete heart block after work again. Pacer pads were placed and continued on epinephrine every 2 minutes in addition to CPR. The patient had a pacer pads placed with no capture and no sensing noted. Emergently the patient had right IJ introducer with a pacer wire placed to 40 cm and visualize with the echocardiogram done emergently at the bedside. Initially, the echo showed akinetic right ventricle apex and hyperkinetic base highly suggestive of Takotsubo cardiomyopathy. The patient was started on dopamine drip as well as epinephrine drip. Multiple rounds of CPR were done. Over 14 units of epinephrine and multiple atropine as well as bicarbonate were injected. Even with a pacer wire unable to perform the capture. Echocardiogram was done on several occasions and could not sustain or regain the rhythm. After 45 minutes of CODE BLUE, the [employer] were stopped and the patient was pronounced at that time. At 2:[address] Matos and Dr. Correia present at the bedside as well. No further efforts felt to be fruitful at this time. Dr. Matos is contacting the correction. The cause of the in my opinion complete heart block resulted in cardiomyopathy, the cause is likely coronary artery disease and cardiomyopathy. Even the patient noted to have Sagar-Hadley breathing earlier with comorbidity and morbid obesity, obesity hypoventilation syndrome, the most likely diagnosis would be a cardiac event. The patient earlier also was noted to have a bowel movement and urine habits. Highly likely suspicious for seizure activity occurred earlier. Although this could be the precipitating factor of the previous event. Review of system was not obtainable. Total time spent with the patient excluding procedure time was 45 minutes. Appreciate all the other input. Past Medical/Surgical History Notable for bipolar disorder, morbid obesity, chronic bronchitis, chronic back pain, suicidal ideation. Family History Depression Social History Smoking Status: Never Smoker Smokeless Tobacco Use: No Drug Use: none Marital Status: single, Housing Status: other Occupation Status: disabled Allergies Coded Allergies: No Known Allergies (Verified , `, 02/15/17) Home Medications Scheduled Carbamazepine (Tegretol), 400 MG PO BID Hydrochlorothiazide (Hydrochlorothiazide), 12.5 MG PO DAILY Gilbert Carbonate (Gilbert Carbonate), 300 MG PO QPM Gilbert Carbonate Ext Rel (Lithobid Ext Rel), 450 MG PO BID Lorazepam (Ativan), 0.5 MG PO BID Naproxen (Naprosyn), 500 MG PO BID Risperidone (Risperdal), 3 MG PO BID Current Inpatient Medications Current Inpatient Medications Medications (Trade) Dose Ordered Sig/Fabby Route Start Time Stop Time Status Last Admin Dose Admin Heparin Sodium (Porcine) (Heparin Sq 5000 Unit/0.5ml) 5,000 unit Q8H SQ 03/04/17 06:00 04/03/17 05:59 03/09/17 05:26 5,000 UNIT Acetaminophen (Tylenol Tab) 650 mg Q4H PRN PO 03/03/17 17:45 04/02/17 17:44 Carbamazepine (Tegretol Tab) 400 mg BID PO 03/03/17 21:00 04/02/17 20:59 03/09/17 09:03 400 MG Gilbert Carbonate (Eskalith Cr Tab) 450 mg BID PO 03/03/17 21:00 04/02/17 20:59 03/09/17 09:00 450 MG Risperidone (Risperdal Tab) 3 mg BID PO 03/03/17 21:00 04/02/17 20:59 03/09/17 09:01 3 MG Hydrochlorothiazide (Hydrochlorothiazide Tab) 12.5 mg DAILY PO 03/04/17 09:00 04/03/17 08:59 03/09/17 09:06 12.5 MG Gilbert Carbonate (Gilbert Carbonate Tab) 300 mg DAILY@1600 PO 03/03/17 21:00 04/02/17 20:59 03/08/17 15:49 300 MG Miscellaneous (Iv Fluids Completed) 1 ea PRN PRN N/A 03/03/17 21:00 03/03/18 20:59 Lorazepam (Ativan Tab) 0.5 mg BID@1100,2100 PO 03/05/17 11:00 04/02/17 20:59 03/09/17 11:15 0.5 MG Econazole Nitrate (Econazole Nitrate 1% Crm) 1 appln Q8 EXT 03/05/17 19:03 04/04/17 19:02 03/09/17 05:27 1 APPLN Lidocaine (Lidoderm Patch 5%) 1 patch QAM TD 03/06/17 09:00 04/05/17 08:59 03/09/17 09:08 1 PATCH Miscellaneous (Remove Lidoderm Patch) 1 ea DAILY@21 N/A 03/06/17 21:00 04/05/17 20:59 03/08/17 20:36 1 EA Baclofen (Lioresal Tab) 10 mg Q8 PRN PO 03/06/17 09:00 04/05/17 08:59 Gabapentin (Neurontin Cap) 300 mg TID PO 03/06/17 14:00 04/05/17 13:59 03/09/17 09:01 300 MG Famotidine (Pepcid Tab) 20 mg DAILY PO 03/07/17 09:00 04/06/17 08:59 03/09/17 09:01 20 MG Metoprolol Succinate (Toprol Xl Tab) 25 mg QAM PO 03/06/17 19:50 04/05/17 19:49 03/09/17 09:06 25 MG Polyethylene (Miralax Powder Packet) 17 gm TID PRN PO 03/06/17 21:45 04/05/17 21:44 03/09/17 08:08 17 GM Methylprednisolone Sodium Succinate 20 mg/Syringe 0.32 ml @ 1.5 mls/min Q12H IV 03/07/17 22:00 04/02/17 21:59 03/09/17 10:08 1.5 MLS/MIN Lactobacillus Acidophilus (Lactinex Granules Pack) 1 gm TIDM PO 03/09/17 08:30 04/08/17 08:29 Ceftriaxone Sodium 1 gm/ Dextrose 50 ml @ 100 mls/hr Q24H IV 03/08/17 19:00 03/15/17 18:59 03/08/17 18:53 100 MLS/HR Levofloxacin 500 mg/Prmx 100 ml @ 100 mls/hr Q24H IV 03/08/17 19:00 03/15/17 18:59 03/08/17 18:36 100 MLS/HR Review of Systems Not obtainable. Physical Exam Date Time Temp Pulse Resp B/P (MAP) Pulse Ox O2 Delivery O2 Flow Rate FiO2 03/09/17 13:10 37.0 72 20 146/87 (106) 97 Room Air 03/09/17 12:45 37.0 72 20 182/102 (128) 97 Room Air 03/09/17 09:05 90 135/78 (97) 03/09/17 08:00 Room Air 03/09/17 07:26 36.8 80 17 123/76 (92) 93 Room Air 03/09/17 00:50 Room Air 03/08/17 23:27 36.7 81 18 104/74 (84) 92 Room Air 03/08/17 21:46 92 96 Room Air 03/08/17 15:40 Nasal Cannula 4.0 03/08/17 15:30 36.7 101 18 135/84 (101) 96 Nasal Cannula 4.0 Vital signs are borderline, the patient was tachycardic initially and hypertensive, went into complete heart block and hypotensive and after that to asystole without any rhythm. He could not even capture with 2 pacers including external and transvenous pacers. The patient physical exam apart from coma, showed loud snoring earlier heart examination S1-S2 with distant sounds bilaterally, abdomen is benign, exfoliation of the skin in the periphery. Neurologically he is obtunded and comatose. Laboratory Results Last 24 Hours Test 03/08/17 18:20 03/09/17 02:35 03/09/17 06:10 03/09/17 12:44 Procalcitonin 0.06 ng/ml White Blood Count 16.31 K/uL Red Blood Count 5.73 M/uL Hemoglobin 11.1 g/dL Hematocrit 36.3 % Mean Corpuscular Volume 63.4 fL Mean Corpuscular Hemoglobin 19.4 pg Mean Corpuscular Hemoglobin Concent 30.6 g/dl Platelet Count 199 K/uL Mean Platelet Volume 9.7 fL Neutrophils (%) (Auto) 74.0 % Lymphocytes (%) (Auto) 16.9 % Monocytes (%) (Auto) 7.1 % Eosinophils (%) (Auto) 1.4 % Basophils (%) (Auto) 0.2 % Neutrophils # (Auto) 12.06 K/uL Lymphocytes # (Auto) 2.75 K/uL Monocytes # (Auto) 1.16 K/uL Eosinophils # (Auto) 0.23 K/uL Basophils # (Auto) 0.04 K/uL RDW Standard Deviation 36.7 fL RDW Coefficient of Variation 16.3 % Immature Granulocyte % (Auto) 0.4 % Immature Granulocyte # (Auto) 0.07 K/uL Polychromasia 1+ Hypochromasia PRESENT Ovalocytes 1+ Acanthocytes 1+ Sodium Level 137 mmol/L Potassium Level 4.1 mmol/L Chloride Level 103 mmol/L Carbon Dioxide Level 31 mmol/L Anion Gap 3.0 mmol/L Blood Urea Nitrogen 20 mg/dl Creatinine 1.03 mg/dl Est Creatinine Clear Calc Drug Dose 145.7 ml/min Estimated GFR () 99.8 Estimated GFR (Non- 86.1 BUN/Creatinine Ratio 19.0 Random Glucose 111 mg/dl Calcium Level 9.0 mg/dl Magnesium Level 2.0 mg/dl Total Bilirubin 0.3 mg/dl Aspartate Amino Transf (AST/SGOT) 18 U/L Alanine Aminotransferase (ALT/SGPT) 51 U/L Alkaline Phosphatase 72 U/L Total Protein 6.8 gm/dl Albumin 2.8 gm/dl Globulin 4.0 gm/dl Albumin/Globulin Ratio 0.7 Bedside Glucose 154 mg/dl Test 03/09/17 12:48 Sodium Level 137 mmol/L Potassium Level 3.6 mmol/L Chloride Level 100 mmol/L Carbon Dioxide Level 28 mmol/L Anion Gap 8.0 mmol/L Blood Urea Nitrogen 20 mg/dl Creatinine 1.16 mg/dl Est Creatinine Clear Calc Drug Dose 96.1 ml/min Estimated GFR () 86.4 Estimated GFR (Non- 74.6 BUN/Creatinine Ratio 17.2 Random Glucose 130 mg/dl Lactic Acid Level 4.8 mmol/L Calcium Level 9.8 mg/dl Total Bilirubin 0.4 mg/dl Aspartate Amino Transf (AST/SGOT) 31 U/L Alanine Aminotransferase (ALT/SGPT) 65 U/L Alkaline Phosphatase 84 U/L Troponin I 0.239 ng/ml Total Protein 7.9 gm/dl Albumin 3.4 gm/dl Globulin 4.5 gm/dl Albumin/Globulin Ratio 0.8 Gilbert Level 0.8 mMOL/L Diagnostic Results EKG showed right bundle branch block. Earlier. Chest x-ray was clear. Bedside echocardiogram done by me showed akinetic apex and hyperkinetic base. Highly suspicious for Takotsubo. Dilated RV. Small pericardial effusion. Assessment & Plan #1 cardiac arrest secondary to complete heart block and asystole. #2 asystole likely related to cardiomyopathy and cardiac event. #3 possible seizure activity proceeded which could be related to hypoxia according to the team on the floor. #4 morbid obesity, comorbidity cannot be confirmed undetermined however the patient does have history of hypertension, diabetes, hyperlipidemia as well. #5 Sagar-Hadley breathing noted earlier consistent with his cardiac event. #6 history of bipolar on lithium, Plan, as above and the first section all the events has been registered. Unfortunately, the patient at 2:26 PM. Family notified. CCT 45 minutes excluding procedure time.
--- NOTE | 2017-03-09 15:10 | Procedure Note ---
Procedure Note Procedure Date Mar 09, 2017. Procedure Description Procedure Name: Intubation and transvenous pacer wire. #1 intubation: Indicated for a patient who is comatose. The patient was induced with 20 mg of etomidate and 150 mg of succinyl choline. Using #4 Sai the patient was earlier preoxygenated for 2 minutes, the vocal cords were visualized, #8 ET tube was placed to 21 cm, stylet was removed and the balloon was inflated, end tidal CO2 was yellow, equal breath sounds, no immediate complication. #2 transvenous pacer wire was placed due to the patient be in complete heart block, no consent obtained from either procedure #1 or #2. Her both done emergently. At the right IJ using ultrasound guidance at possible sterility, using the ultrasound, right IJ was identified, using Seldinger technique, a wire was placed and introducer was placed also, the dilator and wire were removed, and secured with 1 suture, the skin was prepped earlier with chlorhexidine, a side port was flushed with saline, the pacer wire passed through the sheet, and inserted to 40 cm under visualization with echocardiogram , balloon was inflated at 15 cm, the patient had the pacer wire placed to 40 cm and secured, the sheath was locked, multiple visualization using the echo noted the wire is in the right ventricle, the pacer wire was placed to a sensitivity of 20 mV and current of 20 mA air and 100 bpm, despite all efforts could not capture in the heart that was in asystole, address [employer] space waste picker was turned off and with that the patient could not capture either way. Total time for the procedure was 10 minutes. Contraindications: other (patient did not survive.) Description: As above and the first section. Comments: Both procedures done during a code.
--- NOTE | 2017-03-09 16:36 | Death Summary ---
Summary of Admission Date Mar 05, 2017 at 19:52 Date & Time of Mar 09, 2017. 2:26 pm Cause of complete heart block acute congestive heart failure myocardial infarction Secondary Diagnoses uncontrolled HTN morbid obesity Hospital Course 46 year old man morbidly obese w PMHx of bipolar disorder on lithium, HTN, morbid obesity and clinically suspected severe EDMUND, admitted to the hospital with intractable lower back pain. Initially he was started on Percocet/long-acting oxycodone. He was also started on Toradol, gentle IV fluid hydration pain management were consulted. Recommended stop narcotics which were stopped gradually over 2 days. Today he was off all narcotics since yesterday. Toradol also was stopped yesterday because his creatinine jumped from 0.7 to 1 [place] level was checked upon admission and was within normal limits. left foot has large callus possibly infected on the basis of left toe is. He had and I&D at bedside cultures grew staph aureus, he was placed on Keflex that was switched to Unasyn . During her hospital his hospital stay he was found to have elevated blood pressure. 2 days ago has orthostatic restaurant was checked and systolic blood pressure dropped from 200 to 157 when he stood up He was started on low-dose hydrochlorothiazide and beta walter toprol xl 25mg daily. Blood pressure was better controlled. Yesterday he had a brief episode of hypoxia that was treated with 1 dose of Lasix and antibiotics was changed to ceftriaxone/levofloxacin for potential healthcare associated pneumonia. Patient today asked nursing staff to use the bedside commode. While he stated he felt dizzy and he asked to be placed back on bed When they brought him in. Patient suddenly stopped breathing. NATALIA PEREZ was called. Arrival resuscitation has already started. CODE BLUE was managed as per protocol. He regained pulse within 1 minute He required a nasal airway was snoring really loudly while being transferred to ICU. Intubated in ICU and then suddenly he went into cardiac arrest again, pulseless arrest after going through a complete heart block on the monitor. Critical care attending and cage cashier were at bedside. Protocol was followed for ACLS. Patient received multiple epinephrine alternating with atropine. Also had dopamine drip started. We were able to regain pulse for short period of time but then he coded again. All attempts to revive him failed despite the fall of the medications he received Patient was pronounced at 2:26 pm His ex- (April) was informed on the phone, [facility] he lived in was also informed (Kati) Natalia blue encounter and documentation required 45 minutes.
--- NOTE | 2017-03-13 09:14 | EDITING REQUIRED CODING QUERY ---
DEBRIDEMENT DOCUMENTATION To promote full compliance with coding requirements relating to patient care, physician participation is requested in all cases of electroformer uncertainty. Please assist us with the question(s) below: Coding Question: Debridement was documented in 03/05 consult; please clarify below. Thank you! Please place an X in the parenthesis (x). If other, please document the finding: Type of Debridement: ( ) Excisional Debridement- Cutting away necrotic, devitalized tissue or slough to the level of viable tissue using a sharp instrument (i.e. scalpel, scissors, etc.) ( ) Non Excisional Debridement- The removal of necrotic, devitalized tissue or slough by means of scraping, mechanical brushing, flushing, or washing (i.e. irrigation, whirlpool);minor removal of loose fragments. ( ) Other (please specify): Instrument Used: ( ) Scissors ( ) Scalpel ( ) Curette ( ) Other (please specify): Depth of Debridement: ( ) Skin ( ) Skin and Subcutaneous Tissue ( ) Skin, Subcutaneous Tissue and Muscle ( ) Skin, Subcutaneous Tissue, Muscle and Bone ( ) Other (please specify): Please Specify the Size of Debridement in cm2: Thank you! Maritza Nichols
--- NOTE | 2017-03-20 13:46 | CODING QUERY MEDICAL NECESSITY ---
DEBRIDEMENT DOCUMENTATION Please place an X in the parenthesis (x). If other, please document the finding: Coding Question: Debridement was documented in 03/05 PN; please clarify below. Thank you so much for your help! Type of Debridement: ( ) Excisional Debridement- Cutting away necrotic, devitalized tissue or slough to the level of viable tissue using a sharp instrument (i.e. scalpel, scissors, etc.) ( ) Non Excisional Debridement- The removal of necrotic, devitalized tissue or slough by means of scraping, mechanical brushing, flushing, or washing (i.e. irrigation, whirlpool);minor removal of loose fragments. ( ) Other (please specify): Instrument Used: ( ) Scissors ( ) Scalpel ( ) Curette ( ) Other (please specify): Depth of Debridement: ( ) Skin ( ) Skin and Subcutaneous Tissue ( ) Skin, Subcutaneous Tissue and Muscle ( ) Skin, Subcutaneous Tissue, Muscle and Bone ( ) Other (please specify): Provider Signature: Date: Thank you! Maritza Nichols Health Information Management Once completed, please kindly fax back to [phone] For questions please call [phone]
== END 2017-03-09 14:26 | disposition expired | DRG 464 ==
LOC: C.EDC 12:21 → EDBD 12:21 → EDBEDREQ 17:54 → C.3E 18:32 → EDBEDREQ 18:37 → ENRESERV 18:59 → OBSVTOIN 03-05 19:52 → C.MSICU 03-09 12:58
PROVIDERS: ADMIT Internal Medicine Sports Medicine; ATTEND Internal Medicine
PROC: 0JBR0ZZ Excision of Left Foot Subcutaneous Tissue and Fascia, Open Approach (ICD-10-PCS; principal; 2017-03-05)
PROC: 5A1213Z Performance of Cardiac Pacing, Intermittent (ICD-10-PCS; 2017-03-09)
PROC: 0BH17EZ Insertion of Endotracheal Airway into Trachea, Via Natural or Artificial Opening (ICD-10-PCS; 2017-03-09)
DX: M48.061 Spinal stenosis, lumbar region without neurogenic claudication (principal); Z68.41 Body mass index [BMI] 40.0-44.9, adult; N17.9 Acute kidney failure, unspecified; I44.2 Atrioventricular block, complete; L03.116 Cellulitis of left lower limb; I46.9 Cardiac arrest, cause unspecified; E11.621 Type 2 diabetes mellitus with foot ulcer; L97.529 Non-pressure chronic ulcer of other part of left foot with unspecified severity; B95.61 Methicillin susceptible Staphylococcus aureus infection as the cause of diseases classified elsewhere; E66.01 Morbid (severe) obesity due to excess calories; I10 Essential (primary) hypertension; M54.16 Radiculopathy, lumbar region; L30.9 Dermatitis, unspecified; L84 Corns and callosities; G47.33 Obstructive sleep apnea (adult) (pediatric); F25.9 Schizoaffective disorder, unspecified; Z79.899 Other long term (current) drug therapy; Z81.8 Family history of other mental and behavioral disorders